=== PATIENT | female | born 1940 | race Two or more races ===

== ENCOUNTER 2016-09-14 08:12 | Outpatient (CLI) | payer MEDICARE, MEDICAID | END 2016-09-14 23:59 | disposition home or self-care (01) | LOC: WOU 08:12 | PROVIDERS: ATTEND Podiatrist Foot & Ankle Surgery | DX: E11.621 Type 2 diabetes mellitus with foot ulcer (principal); L97.521 Non-pressure chronic ulcer of other part of left foot limited to breakdown of skin; L97.519 Non-pressure chronic ulcer of other part of right foot with unspecified severity; E11.42 Type 2 diabetes mellitus with diabetic polyneuropathy; E11.69 Type 2 diabetes mellitus with other specified complication; M86.8X7 Other osteomyelitis, ankle and foot; L85.3 Xerosis cutis; R60.0 Localized edema; M20.42 Other hammer toe(s) (acquired), left foot; M20.41 Other hammer toe(s) (acquired), right foot; B35.1 Tinea unguium; L84 Corns and callosities; E11.51 Type 2 diabetes mellitus with diabetic peripheral angiopathy without gangrene | CPT/HCPCS: A6402; G0463 ==

== ENCOUNTER 2017-04-12 12:30 | Outpatient (CLI) | payer MEDICARE, MEDICAID | END 2017-04-12 23:59 | disposition home health service (06) | LOC: WOU 12:30 | PROVIDERS: ATTEND Podiatrist Foot & Ankle Surgery | DX: E11.621 Type 2 diabetes mellitus with foot ulcer (principal); L97.415 Non-pressure chronic ulcer of right heel and midfoot with muscle involvement without evidence of necrosis; L97.526 Non-pressure chronic ulcer of other part of left foot with bone involvement without evidence of necrosis; Z79.84 Long term (current) use of oral hypoglycemic drugs; Z79.899 Other long term (current) drug therapy; E11.52 Type 2 diabetes mellitus with diabetic peripheral angiopathy with gangrene; E11.69 Type 2 diabetes mellitus with other specified complication; M86.672 Other chronic osteomyelitis, left ankle and foot; L97.512 Non-pressure chronic ulcer of other part of right foot with fat layer exposed; E11.40 Type 2 diabetes mellitus with diabetic neuropathy, unspecified | CPT/HCPCS: 11042; 11043; 11044; A6402; J3490 ==

== ENCOUNTER → 2017-04-19 | Outpatient (CLI) | payer MEDICARE, MEDICAID | END | disposition home health service (06) | LOC: WOU 13:05 | PROVIDERS: ATTEND Podiatrist Foot & Ankle Surgery | DX: E11.621 Type 2 diabetes mellitus with foot ulcer (principal); L97.412 Non-pressure chronic ulcer of right heel and midfoot with fat layer exposed; L97.526 Non-pressure chronic ulcer of other part of left foot with bone involvement without evidence of necrosis; L97.512 Non-pressure chronic ulcer of other part of right foot with fat layer exposed; E11.69 Type 2 diabetes mellitus with other specified complication; M86.8X7 Other osteomyelitis, ankle and foot; E11.51 Type 2 diabetes mellitus with diabetic peripheral angiopathy without gangrene; E11.42 Type 2 diabetes mellitus with diabetic polyneuropathy | CPT/HCPCS: A6402; G0463 ==

== ENCOUNTER 2017-04-24 11:10 | Outpatient (CLI) | payer MEDICARE, MEDICAID | END 2017-04-24 23:59 | disposition home health service (06) | LOC: WOU 11:10 | PROVIDERS: ATTEND Specialist | DX: I96 Gangrene, not elsewhere classified (principal); E11.621 Type 2 diabetes mellitus with foot ulcer; L97.412 Non-pressure chronic ulcer of right heel and midfoot with fat layer exposed; L97.526 Non-pressure chronic ulcer of other part of left foot with bone involvement without evidence of necrosis; L97.512 Non-pressure chronic ulcer of other part of right foot with fat layer exposed; E11.52 Type 2 diabetes mellitus with diabetic peripheral angiopathy with gangrene; Z79.84 Long term (current) use of oral hypoglycemic drugs | CPT/HCPCS: A6209; A6402; G0463 ==

== ENCOUNTER 2017-04-30 10:50 | Outpatient (CLI) | payer MEDICARE, MEDICAID | END 2017-04-30 23:59 | disposition home health service (06) | LOC: WOU 10:50 | PROVIDERS: ATTEND Podiatrist Foot & Ankle Surgery | DX: E11.621 Type 2 diabetes mellitus with foot ulcer (principal); L97.412 Non-pressure chronic ulcer of right heel and midfoot with fat layer exposed; L97.526 Non-pressure chronic ulcer of other part of left foot with bone involvement without evidence of necrosis; L97.512 Non-pressure chronic ulcer of other part of right foot with fat layer exposed; I96 Gangrene, not elsewhere classified; E11.52 Type 2 diabetes mellitus with diabetic peripheral angiopathy with gangrene; M20.42 Other hammer toe(s) (acquired), left foot; M20.41 Other hammer toe(s) (acquired), right foot; Z79.84 Long term (current) use of oral hypoglycemic drugs; Z79.899 Other long term (current) drug therapy | CPT/HCPCS: 11042; A6209; A6402 ==

== ENCOUNTER 2017-05-07 11:04 | Outpatient (CLI) | payer MEDICARE, MEDICAID | END 2017-05-07 23:59 | disposition home health service (06) | LOC: WOU 11:04 | PROVIDERS: ATTEND Podiatrist Foot & Ankle Surgery | DX: E11.621 Type 2 diabetes mellitus with foot ulcer (principal); L97.412 Non-pressure chronic ulcer of right heel and midfoot with fat layer exposed; L97.524 Non-pressure chronic ulcer of other part of left foot with necrosis of bone; L97.512 Non-pressure chronic ulcer of other part of right foot with fat layer exposed; E11.69 Type 2 diabetes mellitus with other specified complication; M86.8X7 Other osteomyelitis, ankle and foot; E11.42 Type 2 diabetes mellitus with diabetic polyneuropathy; R42 Dizziness and giddiness; R10.9 Unspecified abdominal pain; Z79.84 Long term (current) use of oral hypoglycemic drugs; Z79.899 Other long term (current) drug therapy | CPT/HCPCS: 11042; 11044; 82962; A6209 ×2; A6402; G0463 ==

== ENCOUNTER 2017-05-07 12:11 | Outpatient (CLI) | payer MEDICARE, OTHER | END 2017-05-07 23:59 | disposition home or self-care (01) | LOC: RAD 12:11 | PROVIDERS: ATTEND Specialist | DX: J98.11 Atelectasis (principal); J98.6 Disorders of diaphragm; I70.0 Atherosclerosis of aorta; M47.894 Other spondylosis, thoracic region | CPT/HCPCS: 71046 ==

== ENCOUNTER 2017-05-31 08:30 | Outpatient (CLI) | payer MEDICARE, OTHER | END 2017-05-31 23:59 | disposition home health service (06) | LOC: WOU 08:30 | PROVIDERS: ATTEND Podiatrist Foot & Ankle Surgery | DX: E11.621 Type 2 diabetes mellitus with foot ulcer (principal); L97.412 Non-pressure chronic ulcer of right heel and midfoot with fat layer exposed; L97.524 Non-pressure chronic ulcer of other part of left foot with necrosis of bone; L97.512 Non-pressure chronic ulcer of other part of right foot with fat layer exposed; E11.69 Type 2 diabetes mellitus with other specified complication; M86.9 Osteomyelitis, unspecified; E11.52 Type 2 diabetes mellitus with diabetic peripheral angiopathy with gangrene; E11.65 Type 2 diabetes mellitus with hyperglycemia; Z79.84 Long term (current) use of oral hypoglycemic drugs | CPT/HCPCS: 11042; 11044; 82962; A6197; A6402 ×2 ==

== ENCOUNTER 2017-06-07 09:00 | Outpatient (CLI) | payer MEDICARE, OTHER | END 2017-06-07 23:59 | disposition home health service (06) | LOC: WOU 09:00 | PROVIDERS: ATTEND Podiatrist Foot & Ankle Surgery | DX: E11.621 Type 2 diabetes mellitus with foot ulcer (principal); L97.412 Non-pressure chronic ulcer of right heel and midfoot with fat layer exposed; L97.526 Non-pressure chronic ulcer of other part of left foot with bone involvement without evidence of necrosis; L97.512 Non-pressure chronic ulcer of other part of right foot with fat layer exposed; E11.69 Type 2 diabetes mellitus with other specified complication; M86.9 Osteomyelitis, unspecified; Z79.84 Long term (current) use of oral hypoglycemic drugs; E11.42 Type 2 diabetes mellitus with diabetic polyneuropathy; E11.52 Type 2 diabetes mellitus with diabetic peripheral angiopathy with gangrene; I96 Gangrene, not elsewhere classified | CPT/HCPCS: 11042; 11044; A6197; A6402 ==

== ENCOUNTER 2017-06-14 08:30 | Outpatient (CLI) | payer MEDICARE, OTHER | END 2017-06-14 23:59 | disposition home health service (06) | LOC: WOU 08:30 | PROVIDERS: ATTEND Podiatrist Foot & Ankle Surgery | DX: E11.621 Type 2 diabetes mellitus with foot ulcer (principal); L97.524 Non-pressure chronic ulcer of other part of left foot with necrosis of bone; L97.412 Non-pressure chronic ulcer of right heel and midfoot with fat layer exposed; L97.512 Non-pressure chronic ulcer of other part of right foot with fat layer exposed; M20.40 Other hammer toe(s) (acquired), unspecified foot; F41.9 Anxiety disorder, unspecified; E11.42 Type 2 diabetes mellitus with diabetic polyneuropathy; Z79.84 Long term (current) use of oral hypoglycemic drugs; Z79.899 Other long term (current) drug therapy | CPT/HCPCS: 11042; 11044; A6197; A6402 ==

== ENCOUNTER 2017-06-19 08:49 | Outpatient (CLI) | payer MEDICARE, OTHER ==
[2017-06-19] MEDS ORDERED: LORAZEPAM 0.5 MG TABLET PO ONE (09:30)
== END 2017-06-19 23:55 | disposition home or self-care (01) ==
LOC: WOU 08:49
PROVIDERS: ATTEND Specialist
DX: I96 Gangrene, not elsewhere classified (principal); E11.52 Type 2 diabetes mellitus with diabetic peripheral angiopathy with gangrene; E11.69 Type 2 diabetes mellitus with other specified complication; M86.69 Other chronic osteomyelitis, multiple sites; E11.621 Type 2 diabetes mellitus with foot ulcer; L97.529 Non-pressure chronic ulcer of other part of left foot with unspecified severity; S91.312A Laceration without foreign body, left foot, initial encounter; W25.XXXA Contact with sharp glass, initial encounter; Y92.89 Other specified places as the place of occurrence of the external cause; F40.240 Claustrophobia; H61.22 Impacted cerumen, left ear; G40.89 Other seizures
CPT/HCPCS: G0463

== ENCOUNTER 2017-06-21 10:29 | Outpatient (CLI) | payer MEDICARE, OTHER | END 2017-06-21 23:59 | disposition home health service (06) | LOC: WOU 10:29 | PROVIDERS: ATTEND Podiatrist Foot & Ankle Surgery | DX: E11.621 Type 2 diabetes mellitus with foot ulcer (principal); L97.412 Non-pressure chronic ulcer of right heel and midfoot with fat layer exposed; L97.524 Non-pressure chronic ulcer of other part of left foot with necrosis of bone; L97.512 Non-pressure chronic ulcer of other part of right foot with fat layer exposed; E11.65 Type 2 diabetes mellitus with hyperglycemia; E11.69 Type 2 diabetes mellitus with other specified complication; M86.8X7 Other osteomyelitis, ankle and foot; Z79.84 Long term (current) use of oral hypoglycemic drugs | CPT/HCPCS: 11042; 11044; A6197; A6402 ==

== ENCOUNTER 2017-06-28 09:50 | Outpatient (CLI) | payer MEDICARE, OTHER ==
[2017-08-14] MEDS ORDERED: RXVAN XX (13:57)
== END 2017-06-28 23:59 | disposition home health service (06) ==
LOC: WOU 09:50
PROVIDERS: ATTEND Podiatrist Foot & Ankle Surgery
DX: E11.621 Type 2 diabetes mellitus with foot ulcer (principal); L97.526 Non-pressure chronic ulcer of other part of left foot with bone involvement without evidence of necrosis; L97.516 Non-pressure chronic ulcer of other part of right foot with bone involvement without evidence of necrosis; L97.512 Non-pressure chronic ulcer of other part of right foot with fat layer exposed; E11.65 Type 2 diabetes mellitus with hyperglycemia; E11.69 Type 2 diabetes mellitus with other specified complication; M86.9 Osteomyelitis, unspecified; Z79.84 Long term (current) use of oral hypoglycemic drugs
CPT/HCPCS: 11042; 11044; 87070-TC; 87075-TC; 87186-TC; A6197; A6402

== ENCOUNTER 2017-07-05 08:47 | Outpatient (CLI) | payer MEDICARE, OTHER ==
[2017-08-14] MEDS ORDERED: RXVAN XX (13:57)
== END 2017-07-05 23:59 | disposition home health service (06) ==
LOC: WOU 08:47
PROVIDERS: ATTEND Podiatrist Foot & Ankle Surgery
DX: E11.621 Type 2 diabetes mellitus with foot ulcer (principal); L97.512 Non-pressure chronic ulcer of other part of right foot with fat layer exposed; L97.524 Non-pressure chronic ulcer of other part of left foot with necrosis of bone; E11.65 Type 2 diabetes mellitus with hyperglycemia; E11.69 Type 2 diabetes mellitus with other specified complication; M86.69 Other chronic osteomyelitis, multiple sites; Z79.84 Long term (current) use of oral hypoglycemic drugs; G40.89 Other seizures
CPT/HCPCS: 11042; 11044; A6197; A6402

== ENCOUNTER 2017-07-12 12:15 | Outpatient (CLI) | payer MEDICARE, OTHER ==
[2017-08-14] MEDS ORDERED: RXVAN XX (13:57)
== END 2017-07-12 23:59 | disposition home health service (06) ==
LOC: WOU 12:15
PROVIDERS: ATTEND Podiatrist Foot & Ankle Surgery
DX: E11.621 Type 2 diabetes mellitus with foot ulcer (principal); L97.524 Non-pressure chronic ulcer of other part of left foot with necrosis of bone; L97.512 Non-pressure chronic ulcer of other part of right foot with fat layer exposed; E11.52 Type 2 diabetes mellitus with diabetic peripheral angiopathy with gangrene; I96 Gangrene, not elsewhere classified; Z79.4 Long term (current) use of insulin; E11.69 Type 2 diabetes mellitus with other specified complication; M86.69 Other chronic osteomyelitis, multiple sites; G40.89 Other seizures
CPT/HCPCS: 11042; 11044; A6402

== ENCOUNTER 2017-07-19 10:00 | Outpatient (CLI) | payer MEDICARE, OTHER ==
[2017-08-14] MEDS ORDERED: RXVAN XX (13:57)
== END 2017-07-19 23:59 | disposition home health service (06) ==
LOC: WOU 10:00
PROVIDERS: ATTEND Podiatrist Foot & Ankle Surgery
DX: E11.621 Type 2 diabetes mellitus with foot ulcer (principal); L97.524 Non-pressure chronic ulcer of other part of left foot with necrosis of bone; L97.512 Non-pressure chronic ulcer of other part of right foot with fat layer exposed; E11.69 Type 2 diabetes mellitus with other specified complication; M86.672 Other chronic osteomyelitis, left ankle and foot; E11.42 Type 2 diabetes mellitus with diabetic polyneuropathy; Z79.84 Long term (current) use of oral hypoglycemic drugs
CPT/HCPCS: 11042; 11044; 82962; A6402

== ENCOUNTER 2017-08-02 09:40 | Outpatient (CLI) | payer MEDICARE, OTHER ==
[2017-08-14] MEDS ORDERED: RXVAN XX (13:57)
== END 2017-08-02 23:59 | disposition home health service (06) ==
LOC: WOU 09:40
PROVIDERS: ATTEND Podiatrist Foot & Ankle Surgery
DX: E11.621 Type 2 diabetes mellitus with foot ulcer (principal); L97.524 Non-pressure chronic ulcer of other part of left foot with necrosis of bone; L97.512 Non-pressure chronic ulcer of other part of right foot with fat layer exposed; Z79.84 Long term (current) use of oral hypoglycemic drugs; Z79.899 Other long term (current) drug therapy; E11.65 Type 2 diabetes mellitus with hyperglycemia; E11.69 Type 2 diabetes mellitus with other specified complication; M86.672 Other chronic osteomyelitis, left ankle and foot; E11.42 Type 2 diabetes mellitus with diabetic polyneuropathy
CPT/HCPCS: 11042; 11044; A6402

== ENCOUNTER → 2017-08-07 | Outpatient (CLI) | payer MEDICARE, OTHER ==
[~2017-08-07] MED LIST: ATOR40TA PO; BENA20TA9 PO; CLOP75TA15 PO; GLIP10TA11 PO; INSU100I4 SQ; INSU100V7 SQ; MEMA10TA PO; METF-442 PO; PANT40TA2 PO; RXVAN XX
== END | disposition home health service (06) ==
LOC: WOU 09:16
PROVIDERS: ATTEND Podiatrist Foot & Ankle Surgery
DX: E11.621 Type 2 diabetes mellitus with foot ulcer (principal); L97.524 Non-pressure chronic ulcer of other part of left foot with necrosis of bone; L97.512 Non-pressure chronic ulcer of other part of right foot with fat layer exposed; M86.672 Other chronic osteomyelitis, left ankle and foot; E11.65 Type 2 diabetes mellitus with hyperglycemia; E11.42 Type 2 diabetes mellitus with diabetic polyneuropathy; Z79.84 Long term (current) use of oral hypoglycemic drugs
CPT/HCPCS: 11042; 11044; A6402

== ENCOUNTER 2017-08-09 08:23 | Outpatient (CLI) | payer MEDICARE, OTHER ==
[2017-08-09] MEDS ORDERED: GLIP10TA11 PO (11:49)
[2017-08-09] MEDS ORDERED: METF-442 PO (11:49)
[2017-08-09] MEDS ORDERED: PANT40TA2 PO (11:58)
[2017-08-09] MEDS ORDERED: MEMA10TA PO (11:58)
[2017-08-09] MEDS ORDERED: CLOP75TA15 PO (11:58)
[2017-08-09] MEDS ORDERED: BENA20TA9 PO (11:58)
[2017-08-09] MEDS ORDERED: INSU100I4 SQ (11:58)
[2017-08-09] MEDS ORDERED: ATOR40TA PO (11:58)
[2017-08-09] MEDS ORDERED: INSU100V7 SQ ×2 (11:58)
[2017-08-14] MEDS ORDERED: RXVAN XX (13:57)
== END 2017-08-09 23:59 | disposition other institution (70) ==
LOC: WOU 08:23
PROVIDERS: ATTEND Podiatrist Foot & Ankle Surgery
DX: E11.621 Type 2 diabetes mellitus with foot ulcer (principal); L97.524 Non-pressure chronic ulcer of other part of left foot with necrosis of bone; L97.512 Non-pressure chronic ulcer of other part of right foot with fat layer exposed; E11.69 Type 2 diabetes mellitus with other specified complication; M86.672 Other chronic osteomyelitis, left ankle and foot; E11.65 Type 2 diabetes mellitus with hyperglycemia; Z79.84 Long term (current) use of oral hypoglycemic drugs
CPT/HCPCS: 11042; 11044; A6402

== ENCOUNTER 2017-08-09 10:04 | Inpatient (IN) | payer MEDICARE, OTHER ==
[~2017-08-09] VITALS: Ht 167.6 cm; Wt 79.8 kg
[2017-08-09 10:25] VITALS: BP 148/82
[2017-08-09] MEDS ORDERED: VANCOMYCIN 1 GM in IV NS 0.9% 250 ML IV SCH (11:00)
--- NOTE | 2017-08-09 11:10 | NUR ---
MS RN ADMITTING NOTES PATIENT ADMITTED DIRECTLY FROM [facility] TO UNIT VIA WHEELCHAIR @1030 ACCOMPANIED BY LEONEL BEAUCHAMP AND PT'S DAUGHTER. A/O X 4. [place]GI[place] SPEAKING. PT ORIENTED TO UNIT AND HER ROOM. 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 PT FOR B/L FOOT DEBRIDEMENT AND WOUND CLOSURE ON SATURDAY (08/12/2017), CONSENT WILL BE OBTAIN FROM PT. V/S TAKEN AND RECORDED. PHOTO OF FOOT ULCERS TAKEN AND FILED ON CHART. BELONGINGS COUNTED AND SIGNED FORM. PT BROUGHT SOME HOME MEDS AND SENT TO PHARMACY FOR SAFEKEEPING. ASSESSMENT DONE AND NOTED WITH FOOT ULCERS ON BOTH TOES., PHOTOS TAKEN AND FILED ON CHART. PT IS UNDER BENNY CARTY AND ALL HIS ORDERS CARRIED OUT. LEONEL MARS INSERTED IV LINE ON PT'S RIGHT HAND G#20 AND SECURED WITH TAPE. SAFETY MEASURES INITIATED. BED PLACED IN LOW/LOCKED POSITION WITH SIDE-RAILS UP X2. BED ALARM ON. CALL LIGHT WITHIN REACH OF PT. ENCOURAGED PT TO CALL FOR STAFF IF SHE NEEDS ASSISTANCE. WILL CONTINUE TO MONITOR PT ACCORDINGLY.
[2017-08-09] MEDS ORDERED: METF-442 PO (11:49)
[2017-08-09] MEDS ORDERED: GLIP10TA11 PO (11:49)
[2017-08-09] MEDS ORDERED: ATOR40TA PO (11:58)
[2017-08-09] MEDS ORDERED: MEMA10TA PO (11:58)
[2017-08-09] MEDS ORDERED: PANT40TA2 PO (11:58)
[2017-08-09] MEDS ORDERED: CLOP75TA15 PO (11:58)
[2017-08-09] MEDS ORDERED: BENA20TA9 PO (11:58)
[2017-08-09] MEDS ORDERED: INSU100I4 SQ (11:58)
[2017-08-09] MEDS ORDERED: INSU100V7 SQ ×2 (11:58)
[2017-08-09 12:46] LABS: BASOPHILS % (AUTO) 0.2 % (0.0-2.0); EOSINOPHILS % (AUTO) 1.2 % (0.0-6.0); HEMATOCRIT 32 % (33-45); HEMOGLOBIN 11.1 g/dL (11.5-14.8); LYMPHOCYTES # (AUTO) 1.1 /CMM (0.8-4.8); LYMPHOCYTES % (AUTO) 31.5 % (20.0-44.0); MEAN CORPUSCULAR HGB CONC 35 g/dl (31.0-36.0); MEAN CORPUSCULAR VOLUME 87 fL (82-100); MONOCYTES # (AUTO) 0.2 /CMM (0.1-1.30); MONOCYTES % (AUTO) 6.4 % (2.0-12.0); NEUTROPHILS # (AUTO) 2.2 /CMM (1.8-8.9); NEUTROPHILS % (AUTO) 60.7 % (43.0-81.0); PLATELET COUNT (AUTO) 215 /CMM (150-450); RDW COEFFICIENT OF VARIATION 12.7 (11.5-15.0); RED BLOOD CELL COUNT(AUTO) 3.69 MIL/uL (4.0-5.2); WHITE BLOOD COUNT (AUTO) 3.6 K/uL (4.3-11.0)
[2017-08-09] MEDS ORDERED: DEXTROSE 50%-WATER 50 ML DISP.SYRIN IV PRN (13:00)
[2017-08-09] MEDS ORDERED: *INSULIN REGULAR(HUMULIN R)HUM 100 UNIT/ML VIAL SQ PRN (13:00)
[2017-08-09] MEDS ORDERED: INSULIN REGULAR, HUMAN 100 UNIT/ML 3 ML VIAL SQ PRN (13:00)
[2017-08-09 13:03] LABS: ALANINE AMINOTRANSFERASE 20 U/L (12-78); ALBUMIN 3.8 g/dL (3.4-5.0); ALKALINE PHOSPHATASE 113 U/L (46-116); ASPARTATE AMINOTRANSFERASE 16 U/L (15-37); BILIRUBIN,TOTAL 0.4 mg/dL (0.2-1.0); CALCIUM, SERUM 9.2 mg/dL (8.5-10.1); CARBON DIOXIDE 26 mmol/L (21-32); CHLORIDE 102 mmol/L (98-107); GLUCOSE 242 mg/dL (74-106); POTASSIUM 4.3 mmol/L (3.5-5.1); SODIUM SERUM 137 mmol/L (136-145); TOTAL PROTEIN, SERUM 8.5 g/dL (6.4-8.2); UREA NITROGEN, BLOOD 12 mg/dL (7-18)
[2017-08-09] MEDS ORDERED: FEE PK DOSING 1 MIN EA MC ONE (14:31)
[2017-08-09] MEDS: VANCOMYCIN 0.75 GM in IV NS 0.9% 250 ML IV SCH (14:46)
[2017-08-09 16:00] VITALS: BP 138/79
--- NOTE | 2017-08-09 16:33 | NUR ---
RN NOTES PT'S RIGHT NARE SWABBED FOR MRSA TEST THEN CALLED LAB TO PICK SPECIMEN.
[2017-08-09] MEDS: MEMANTINE HCL 5 MG TABLET PO SCH (17:10)
[2017-08-09] MEDS: METFORMIN 500 MG TABLET PO SCH (17:11)
[2017-08-09] MEDS: PIPERACILLIN /TAZOBACTAM 3.375 G in IV D5W 50 ML IV SCH (17:14)
[2017-08-09] MEDS: BLOOD SUGAR DIAGNOSTIC 1 EACH STRIP VI SCH ×2 (17:38→21:44)
[2017-08-09] MEDS: INSULIN LISPRO/ASPART 100 UNIT/ML CARTRIDGE SQ SCH (17:38)
[2017-08-09] MEDS: ATORVASTATIN 40 MG TABLET PO SCH (17:39)
--- NOTE | 2017-08-09 18:30 | NUR ---
MS RN CLOSING NOTES PATIENT IN BED AWAKE AND RESTING AT MODERATE HIGH BACKREST POSITION. A/O 4, SAME VERBALLY RESPONSIVE IN [place]. PT TOLERATING ROOM AIR, BREATHING EVEN WITH NO SOB NOTED. IV ACCESS ON RIGHT HAND G#20 INTACT AND PATENT. HOB KEPT ELEVATED. BED IN LOW/LOCKED POSITION WITH SIDE-RAILS UP X2. BED ALARM ON AND CALL LIGHT WITHIN REACH. ALL NEEDS AND CARE ATTENDED WELL. WILL ENDORSED TO SEO EXECUTIVE NURSE FOR EASTON.
--- NOTE | 2017-08-09 19:15 | NUR ---
MS RN NOTES RECEIVED PATIENT IN BED, AWAKE AND WATCHING TV AT THIS TIME. A/O 4, VERBALLY RESPONSIVE, GREENLANDIC SPEAKING. TOLERATING ROOM AIR, BREATHING EVEN WITH NO SOB NOTED. IV ACCESS ON RIGHT HAND G#20 INTACT AND PATENT. FLUSHED WITH NS. BED IN LOW/LOCKED POSITION WITH SIDE-RAILS UP X2. BED ALARM ON AND CALL LIGHT WITHIN REACH. ALL NEEDS ATTENDED AND MET. SAFETY PRECAUTIONS OBSERVED. WILL CONTINUE TO MONITOR.
[2017-08-09 20:00] VITALS: BP 134/69
[2017-08-09] MEDS: INSULIN GLARGINE, 100 UNIT/ML CARTRIDGE SQ SCH (21:51)
[2017-08-10] MEDS: PIPERACILLIN /TAZOBACTAM 3.375 G in IV D5W 50 ML IV SCH ×5 (00:44→23:52)
[2017-08-10] MEDS: VANCOMYCIN 0.75 GM in IV NS 0.9% 250 ML IV SCH ×2 (03:04→14:15)
[2017-08-10] MEDS: INSULIN LISPRO/ASPART 100 UNIT/ML CARTRIDGE SQ SCH ×3 (06:40→17:56)
[2017-08-10 06:42] LABS: BASOPHILS % (AUTO) 0.3 % (0.0-2.0); EOSINOPHILS % (AUTO) 1.2 % (0.0-6.0); HEMATOCRIT 28 % (33-45); HEMOGLOBIN 9.9 g/dL (11.5-14.8); LYMPHOCYTES # (AUTO) 0.9 /CMM (0.8-4.8); LYMPHOCYTES % (AUTO) 20.7 % (20.0-44.0); MEAN CORPUSCULAR HGB CONC 35 g/dl (31.0-36.0); MEAN CORPUSCULAR VOLUME 86 fL (82-100); MONOCYTES # (AUTO) 0.3 /CMM (0.1-1.30); NEUTROPHILS # (AUTO) 3.1 /CMM (1.8-8.9); NEUTROPHILS % (AUTO) 70.8 % (43.0-81.0); PLATELET COUNT (AUTO) 204 /CMM (150-450); RDW COEFFICIENT OF VARIATION 12.6 (11.5-15.0); RED BLOOD CELL COUNT(AUTO) 3.25 MIL/uL (4.0-5.2); WHITE BLOOD COUNT (AUTO) 4.4 K/uL (4.3-11.0)
[2017-08-10] MEDS: BLOOD SUGAR DIAGNOSTIC 1 EACH STRIP VI SCH ×4 (06:45→21:31)
--- NOTE | 2017-08-10 06:50 | NUR ---
MS RN NOTES PATIENT IN BED, AWAKE, A/O 4, VERBALLY RESPONSIVE, SINGAPOREAN SPEAKING. ON ROOM AIR, SATING 98 % . BREATHING EVEN AND UNLABORED WITH NO SOB NOTED. IV SITE ON RIGHT HAND G#20 INTACT AND PATENT. FLUSHED WITH NS. BED IN LOW/LOCKED POSITION WITH SIDE-RAILS UP X2. BED ALARM ON AND CALL LIGHT WITHIN REACH. NO S/S OF HYPO/ HYPERGLYCEMIA NOTED. ALL NEEDS ATTENDED AND MET. ALL DUE MEDS GIVEN. SAFETY PRECAUTIONS OBSERVED. WILL ENDORSE TO NEXT SHIFT FOR EASTON.
[2017-08-10 07:28] LABS: CALCIUM, SERUM 8.6 mg/dL (8.5-10.1); CARBON DIOXIDE 25 mmol/L (21-32); CHLORIDE 100 mmol/L (98-107); CREATININE 1.1 mg/dL (0.6-1.3); GLUCOSE 288 mg/dL (74-106); POTASSIUM 4.1 mmol/L (3.5-5.1); SODIUM SERUM 136 mmol/L (136-145); UREA NITROGEN, BLOOD 13 mg/dL (7-18)
--- NOTE | 2017-08-10 07:30 | NUR ---
AM RN NOTE Received patient awake, A/O X3 verbally responsive able to make needs known. No SOB noted resp even and non-labored. IV site intact and patent. Bed in low locked position. Will continue to monitor. Call light with in reach.
[2017-08-10 08:00] VITALS: BP 116/69
[2017-08-10] MEDS: PANTOPRAZOLE 40 MG TABLET.DR PO SCH (08:23)
[2017-08-10] MEDS: METFORMIN 500 MG TABLET PO SCH ×2 (08:23→17:43)
[2017-08-10] MEDS: CLOPIDOGREL BISULFATE 75 MG TABLET PO SCH (08:23)
[2017-08-10] MEDS: glipiZIDE 10 MG TABLET PO SCH (08:23)
[2017-08-10] MEDS: BENAZEPRIL HCL 20 MG TABLET PO SCH (08:23)
[2017-08-10] MEDS: MEMANTINE HCL 5 MG TABLET PO SCH ×2 (08:23→17:43)
[2017-08-10] MEDS: CADEXOMER IODINE 40 GM TUBE TP SCH (08:24)
[2017-08-10] MEDS: DAKINS QUARTER STRENGTH (0.125%) 480 ML BOTTLE TOP SCH (08:24)
[2017-08-10] MEDS: ZINC SULFATE 220 MG CAPSULE PO SCH (12:00)
[2017-08-10] MEDS: ASCORBIC ACID 500 MG TABLET PO SCH (12:00)
[2017-08-10] MEDS: ATORVASTATIN 40 MG TABLET PO SCH (17:43)
--- NOTE | 2017-08-10 18:33 | NUR ---
AM RN NOTE Pt resting in her bed, no acute distress noted. Family did not visit today, called daughter (Jeanette) to obtain consent but number listed on the file is not a working number. Will endorse to next shift to F/U. Will continue to monitor pt and endorse care to next shift.
[2017-08-10 20:00] VITALS: BP 113/64
[2017-08-10] MEDS: INSULIN GLARGINE, 100 UNIT/ML CARTRIDGE SQ SCH (21:31)
[2017-08-11] MEDS: VANCOMYCIN 0.75 GM in IV NS 0.9% 250 ML IV SCH (02:02)
[2017-08-11] MEDS: PIPERACILLIN /TAZOBACTAM 3.375 G in IV D5W 50 ML IV SCH ×3 (06:06→17:01)
[2017-08-11] MEDS: INSULIN LISPRO/ASPART 100 UNIT/ML CARTRIDGE SQ SCH ×3 (06:23→17:17)
[2017-08-11] MEDS: BLOOD SUGAR DIAGNOSTIC 1 EACH STRIP VI SCH ×3 (06:24→17:01)
--- NOTE | 2017-08-11 06:49 | NUR ---
MS RN NOTES AWAKE & RESPONSIVE. NOT IN ANY DISTRESS. NO SOB NOTED. DENIES ANY PAIN OR DISCOMFORT AT THIS TIME. WITH IV-HL PATENT & INTACT. MONITORED ACCORDINGLY. CALL LIGHT WITHIN REACH. BED IN LOWEST POSITION. SR UP X 2 FOR SAFETY. WILL ENDORSE TO NEXT SHIFT.
[2017-08-11 07:25] LABS: CALCIUM, SERUM 8.7 mg/dL (8.5-10.1); CARBON DIOXIDE 26 mmol/L (21-32); CHLORIDE 103 mmol/L (98-107); CREATININE 1.1 mg/dL (0.6-1.3); GLUCOSE 181 mg/dL (74-106); POTASSIUM 3.6 mmol/L (3.5-5.1); SODIUM SERUM 139 mmol/L (136-145); UREA NITROGEN, BLOOD 10 mg/dL (7-18)
--- NOTE | 2017-08-11 07:45 | NUR ---
MS RN OPENING NOTE PATIENT IS ALERT AND ORIENTED x4. NO PAIN AT THIS TIME. NO SOB OR DISTRESS NOTED. ABLE TO COMMUNICATE NEEDS. CALL LIGHT WITHIN REACH. SAFETY MEASURES IMPLEMENTED. IV INTACT AND PATENT NO REDNESS OR SWELLING NOTED. WOUND TREATMENT TO BE DONE AND BLOOD SUGAR TO BE CHECKED. STILL AWAITING FOR CONSENT FOR WOUND DEBRIDEMENT. WILL CONTINUE TO MONITOR THROUGHOUT SHIFT
[2017-08-11 08:00] VITALS: BP 109/61
[2017-08-11] MEDS: BENAZEPRIL HCL 20 MG TABLET PO SCH (08:13)
[2017-08-11] MEDS: ZINC SULFATE 220 MG CAPSULE PO SCH (08:15)
[2017-08-11] MEDS: CLOPIDOGREL BISULFATE 75 MG TABLET PO SCH (08:15)
[2017-08-11] MEDS: METFORMIN 500 MG TABLET PO SCH ×2 (08:15→17:01)
[2017-08-11] MEDS: ASCORBIC ACID 500 MG TABLET PO SCH (08:15)
[2017-08-11] MEDS: MEMANTINE HCL 5 MG TABLET PO SCH ×2 (08:15→17:01)
[2017-08-11] MEDS: PANTOPRAZOLE 40 MG TABLET.DR PO SCH (08:15)
[2017-08-11] MEDS: CADEXOMER IODINE 40 GM TUBE TP SCH (08:15)
[2017-08-11] MEDS: glipiZIDE 10 MG TABLET PO SCH (08:15)
[2017-08-11] MEDS: DAKINS QUARTER STRENGTH (0.125%) 480 ML BOTTLE TOP SCH (08:16)
--- NOTE | 2017-08-11 11:00 | NUR ---
MS RN NOTE WOUND DRESSING CHANGED, KEPT CLEAN DRY AND INTACT. WILL CHANGE NEEDED IF SOILED.
--- NOTE | 2017-08-11 12:00 | NUR ---
MS RN NOTE BLOOD SUGAR-160 SCHEDULED INSULIN TO BE GIVEN ONCE FOOD ARRIVES AT BEDSIDE.
[2017-08-11] MEDS: VANCOMYCIN 1 GM in IV D5W 250 ML IV SCH (13:30)
[2017-08-11 16:00] VITALS: BP 114/59
[2017-08-11] MEDS: ATORVASTATIN 40 MG TABLET PO SCH (17:01)
[2017-08-11] MEDS: LACTOBACILLUS RHAMNOSUS GG 1 EACH CAP.SPRINK PO SCH (17:11)
--- NOTE | 2017-08-11 19:20 | NUR ---
MS RN CLOSING NOTES PATIENT IN STABLE CONDITION. IN NO APPARENT DISTRESS. BEDSIDE RAILS ARE UPX2. BED IS LOCKED AND LOWERED. CALL LIGHT IS WITHIN REACH. IV LINE IS INTACT AND PATENT. WILL ENDORSE CARE TO FIRE MANAGEMENT SPECIALIST NURSE FOR EASTON.
--- NOTE | 2017-08-11 19:35 | NUR ---
RN OPENING NOTES RECEIVED REPORT FROM ANAHIWILLAM RN MACARIO. FOUND Pt AWAKE, RESTING IN BED. NO S/S OF ACUTE DISTRESS OR SOB NOTED. Pt IS A/OX4, MALDIVIAN SPEAKING ONLY. NO C/O PAIN AT THIS TIME. IV ACCESS ON RHAND #20G, SL. CONSENT SIGNED FOR CATHY FOOT DEBRIDEMENT AND WOUND CLOSER. SAFETY MEASURES IN PLACE. BED LOW, LOCKED, HOB ELEVATED, SIDE RAILS UP, CALL LIGHT AND BEDSIDE TABLE WITHIN REACH. WILL CONTINUE TO MONITOR Pt THROUGHOUT THE NIGHT FOR SAFETY.
[2017-08-11 20:00] VITALS: BP 113/65
[2017-08-11] MEDS: INSULIN GLARGINE, 100 UNIT/ML CARTRIDGE SQ SCH (22:00)
--- NOTE | 2017-08-11 23:00 | NUR ---
RN NOTES HS ACCUCHECK BG 126. DID NOT ADMINISTER THE SCHEDULED 15UN OF LANTUS. Pt WILL BE NPO STARTING MN DUE TO SCHEDULED PROCEDURE TOMORROW.
[2017-08-12] MEDS: BLOOD SUGAR DIAGNOSTIC 1 EACH STRIP VI SCH ×5 (00:13→22:38)
[2017-08-12] MEDS: PIPERACILLIN /TAZOBACTAM 3.375 G in IV D5W 50 ML IV SCH ×4 (00:13→17:16)
[2017-08-12] MEDS: VANCOMYCIN 1 GM in IV D5W 250 ML IV SCH ×2 (02:51→14:21)
[2017-08-12] MEDS ORDERED: ANESTHESIA TRAY IN PYXIS 1 EA TRAY MC ONE (06:28)
--- NOTE | 2017-08-12 06:30 | NUR ---
RN NOTES BG 175. NO INSULIN COVERAGE GIVEN AT THIS TIME DUE TO NPO STATUS FOR SURGERY TODAY. OR PROCEDURE SCHEDULED AT 0700.
[2017-08-12] MEDS: INSULIN LISPRO/ASPART 100 UNIT/ML CARTRIDGE SQ SCH ×3 (06:31→16:48)
--- NOTE | 2017-08-12 06:35 | NUR ---
RN CLOSING NOTES NO SIGNIFICANT CHANGES IN Pt's CONDITION. Pt REMAINS STABLE AT THIS TIME. NO S/S OF ACUTE DISTRESS OR SOB NOTED DURING THE NIGHT. ALL NEEDS MET AND ATTENDED TO. SAFETY MEASURES IN PLACE. WILL ENDORSE TO DAYSHIFT RN FOR Pt's EASTON.
--- NOTE | 2017-08-12 06:55 | NUR ---
PATIENT TAKEN BY OR TEAM FOR PROCEDURE TODAY.
[2017-08-12 07:29] LABS: CALCIUM, SERUM 8.4 mg/dL (8.5-10.1); CARBON DIOXIDE 25 mmol/L (21-32); CHLORIDE 101 mmol/L (98-107); CREATININE 1.2 mg/dL (0.6-1.3); GLUCOSE 165 mg/dL (74-106); POTASSIUM 3.7 mmol/L (3.5-5.1); SODIUM SERUM 137 mmol/L (136-145); UREA NITROGEN, BLOOD 13 mg/dL (7-18)
--- NOTE | 2017-08-12 07:32 | NUR ---
MS RN OPENING NOTES PATIENT IS IN OPERATION ROOM. PATIENT LEFT AT 0655. WILL MONITOR WHEN PATIENT RETURNS BACK TO THE UNIT.
[2017-08-12] MEDS: CADEXOMER IODINE 40 GM TUBE TP SCH (09:00)
[2017-08-12] MEDS: DAKINS QUARTER STRENGTH (0.125%) 480 ML BOTTLE TOP SCH (09:00)
--- NOTE | 2017-08-12 09:10 | NUR ---
PATIENT CAME BACK FROM OPERATION ROOM. IN STABLE CONDITION. VITAL SIGNS WITHIN NORMAL LIMITS. WILL CONTINUE TO MONITOR. IV LINE IS INTACT AND PATENT. IN NO APPARENT DISTRESS. BEDSIDE RAILS ARE UPX2. BED IS LOCKED AND LOWERED. CALL LIGHT IS WITHIN REACH.
--- NOTE | 2017-08-12 09:20 | NUR ---
IODOSORB AND DAKINS NON ADMINISTERED DUE TO PATIENT JUST ARRIVED FROM OPERATION ROOM AFTER DEBRIDEMENT OF BILATERAL FEET. ORDERS ARE TO REINFORCE DRESSING FOR STRIKE THROUGH BLEEDING.
[2017-08-12] MEDS: LACTOBACILLUS RHAMNOSUS GG 1 EACH CAP.SPRINK PO SCH ×2 (09:39→16:42)
[2017-08-12] MEDS: CLOPIDOGREL BISULFATE 75 MG TABLET PO SCH (09:39)
[2017-08-12] MEDS: PANTOPRAZOLE 40 MG TABLET.DR PO SCH (09:39)
[2017-08-12] MEDS: ZINC SULFATE 220 MG CAPSULE PO SCH (09:39)
[2017-08-12] MEDS: METFORMIN 500 MG TABLET PO SCH ×2 (09:39→16:42)
[2017-08-12] MEDS: ASCORBIC ACID 500 MG TABLET PO SCH (09:39)
[2017-08-12] MEDS: MEMANTINE HCL 5 MG TABLET PO SCH ×2 (09:39→16:42)
[2017-08-12] MEDS: glipiZIDE 10 MG TABLET PO SCH (09:39)
[2017-08-12] MEDS: BENAZEPRIL HCL 20 MG TABLET PO SCH (09:39)
[2017-08-12] MEDS: ATORVASTATIN 40 MG TABLET PO SCH (17:16)
[2017-08-12] MEDS ORDERED: HYDROCODONE/APAP 5/325MG 1 EACH TABLET PO PRN (18:00)
--- NOTE | 2017-08-12 19:00 | NUR ---
MS RN CLOSING NOTES PATIENT IN STABLE CONDITION. IN NO APPARENT DISTRESS. BEDSIDE RAILS ARE UPX2. BED IS LOCKED AND LOWERED. CALL LIGHT IS WITHIN REACH. ALL NEEDS WERE MET. IV LINE IS INTACT AND PATENT. WILL ENDORSE CARE TO ARTILLERY METEOROLOGICAL MAN NURSE FOR EASTON.
--- NOTE | 2017-08-12 19:30 | NUR ---
RN OPENING NOTES RECEIVED REPORT FROM FIDEL RN MACARIO. FOUND Pt AWAKE, RESTING IN BED. NO S/S OF ACUTE DISTRESS OR SOB NOTED. Pt IS A/OX4, INDONESIAN SPEAKING ONLY. S/P B FOOT DEBRIDEMENT AND WOUND CLOSURE TODAY. C/O PAIN ON CATHY FEET, WILL ADMINISTER PAIN MED WHEN DUE. IV ACCESS ON RFA #24G, TKO. SAFETY MEASURES IN PLACE. BED LOW, LOCKED, HOB ELEVATED, SIDE RAILS UP, CALL LIGHT AND BEDSIDE TABLE WITHIN REACH. WILL CONTINUE TO MONITOR Pt THROUGHOUT THE NIGHT FOR SAFETY.
[2017-08-12 20:00] VITALS: BP 127/50
[2017-08-12 20:10] VITALS: BP 127/50
[2017-08-12] MEDS: HYDROCODONE/APAP 10/325MG 1 EA TABLET PO PRN (21:39)
[2017-08-12] MEDS: INSULIN GLARGINE, 100 UNIT/ML CARTRIDGE SQ SCH (22:46)
[2017-08-13] MEDS: PIPERACILLIN /TAZOBACTAM 3.375 G in IV D5W 50 ML IV SCH ×2 (01:18→05:58)
[2017-08-13] MEDS: VANCOMYCIN 1 GM in IV D5W 250 ML IV SCH (02:55)
[2017-08-13] MEDS: HYDROCODONE/APAP 10/325MG 1 EA TABLET PO PRN ×2 (05:58→12:06)
[2017-08-13] MEDS: BLOOD SUGAR DIAGNOSTIC 1 EACH STRIP VI SCH ×4 (06:32→21:56)
--- NOTE | 2017-08-13 07:05 | NUR ---
RN NOTES PT IS SITTING UP IN BED, AWAKE AND ALERT. IV ON RFA INTACT. PT ON RA, RESPIRATIONS ARE EVEN AND UNLABORED. SAFETY MEASURES ARE IN PLACE, CALL LIGHT IS IN REACH. WILL CONTINUE TO MONITOR.
[2017-08-13 07:15] LABS: BASOPHILS % (AUTO) 0.2 % (0.0-2.0); EOSINOPHILS % (AUTO) 0.4 % (0.0-6.0); HEMATOCRIT 29 % (33-45); LYMPHOCYTES # (AUTO) 1.2 /CMM (0.8-4.8); LYMPHOCYTES % (AUTO) 21.2 % (20.0-44.0); MEAN CORPUSCULAR HGB CONC 35 g/dl (31.0-36.0); MEAN CORPUSCULAR VOLUME 86 fL (82-100); MONOCYTES # (AUTO) 0.5 /CMM (0.1-1.30); MONOCYTES % (AUTO) 8.9 % (2.0-12.0); NEUTROPHILS # (AUTO) 3.8 /CMM (1.8-8.9); NEUTROPHILS % (AUTO) 69.3 % (43.0-81.0); PLATELET COUNT (AUTO) 183 /CMM (150-450); RDW COEFFICIENT OF VARIATION 13.2 (11.5-15.0); WHITE BLOOD COUNT (AUTO) 5.5 K/uL (4.3-11.0)
[2017-08-13] MEDS: INSULIN LISPRO/ASPART 100 UNIT/ML CARTRIDGE SQ SCH ×3 (07:30→17:30)
[2017-08-13 07:31] LABS: CARBON DIOXIDE 24 mmol/L (21-32); CHLORIDE 102 mmol/L (98-107); CREATININE 1.3 mg/dL (0.6-1.3); GLUCOSE 123 mg/dL (74-106); MAGNESIUM 1.6 mg/dL (1.8-2.4); PHOSPHORUS 3.7 mg/dL (2.5-4.9); POTASSIUM 3.4 mmol/L (3.5-5.1); SODIUM SERUM 138 mmol/L (136-145); UREA NITROGEN, BLOOD 13 mg/dL (7-18)
--- NOTE | 2017-08-13 07:40 | NUR ---
RN NOTES PT IS FEELING VERY NAUSEAS AND IS UNABLE TO EAT HER BREAKFAST AT THIS TIME. WILL HOLD THE LISPRO INSULIN SCHEDULED FOR THE AM.
[2017-08-13 08:00] VITALS: BP 99/42
[2017-08-13] MEDS: LACTOBACILLUS RHAMNOSUS GG 1 EACH CAP.SPRINK PO SCH ×2 (08:49→16:15)
[2017-08-13] MEDS: PANTOPRAZOLE 40 MG TABLET.DR PO SCH (08:49)
[2017-08-13] MEDS: METFORMIN 500 MG TABLET PO SCH ×2 (08:49→16:15)
[2017-08-13] MEDS: CLOPIDOGREL BISULFATE 75 MG TABLET PO SCH (08:49)
[2017-08-13] MEDS: CADEXOMER IODINE 40 GM TUBE TP SCH (08:50)
[2017-08-13] MEDS: DAKINS QUARTER STRENGTH (0.125%) 480 ML BOTTLE TOP SCH (08:50)
[2017-08-13] MEDS: ZINC SULFATE 220 MG CAPSULE PO SCH (08:50)
[2017-08-13] MEDS: glipiZIDE 10 MG TABLET PO SCH (08:50)
[2017-08-13] MEDS: ASCORBIC ACID 500 MG TABLET PO SCH (08:50)
[2017-08-13] MEDS: MEMANTINE HCL 5 MG TABLET PO SCH ×2 (08:50→16:15)
[2017-08-13] MEDS: BENAZEPRIL HCL 20 MG TABLET PO SCH (08:51)
[2017-08-13] MEDS: ONDANSETRON HCL/PF 4 MG/2 ML VIAL IV PRN ×2 (10:02→16:15)
[2017-08-13] MEDS: POTASSIUM CHLORIDE 20 MEQ TAB.PRT.SR PO SCH ×2 (10:11→12:07)
[2017-08-13] MEDS: Magnesium 1GM/D5W 100ML PREMIX 100 ML IV SCH ×2 (10:11→12:06)
[2017-08-13 12:00] VITALS: BP 133/65
[2017-08-13] MEDS: IBUPROFEN 400 MG TABLET PO PRN ×2 (12:59→21:54)
[2017-08-13] MEDS: PIPERACILLIN /TAZOBACTAM 2.25 G in IV NS 0.9% 50 ML IV SCH ×2 (12:59→17:36)
[2017-08-13 16:00] VITALS: BP 115/64
[2017-08-13] MEDS: ATORVASTATIN 40 MG TABLET PO SCH (17:36)
--- NOTE | 2017-08-13 18:39 | NUR ---
RN NOTES PT IS SITTING UP IN BED, AWAKE AND ALERT. PT ON RA, RESPIRATIONS ARE EVEN AND UNLABORED. IV RFA INTACT AND PATENT. ALL MEDS WERE GIVEN ORDERED AND PT NEEDS MET. NAUSEA AND PAIN HAVE IMPROVED AFTER MEDICATIONS GIVEN PRN. SAFETY MEASURES ARE IN PLACE, CALL LIGHT IS IN REACH. WILL ENDORSE TO COLOR DRUM WORKER RN FOR CONTINUITY OF CARE.
--- NOTE | 2017-08-13 19:35 | NUR ---
RN OPENING NOTES RECEIVED REPORT FROM FIDEL SHANKAR. FOUND Pt AWAKE, RESTING IN BED. NO S/S OF ACUTE DISTRESS OR SOB NOTED. Pt IS A/OX4, KINYARWANDA SPEAKING ONLY. IV ACCESS ON RFA #22G @TKO. CATHY FOOT WRAPPED FROM POST OP DEBRIDEMENT AND WOUND CLOSURE ON 08/12. SAFETY MEASURES IN PLACE. BED LOW, LOCKED, HOB ELEVATED, SIDE RAILS UP, CALL LIGHT AND BEDSIDE TABLE WITHIN REACH. WILL CONTINUE TO MONITOR Pt THROUGHOUT THE NIGHT FOR SAFETY.
[2017-08-13 20:00] VITALS: BP 135/62
[2017-08-13] MEDS: INSULIN GLARGINE, 100 UNIT/ML CARTRIDGE SQ SCH (22:00)
--- NOTE | 2017-08-13 22:00 | NUR ---
RN NOTES HS ACCUCHECK BG 118. HELD LANTUS 15UN. WILL CONTINUE TO MONITOR Pt's BG.
[2017-08-14] MEDS: PIPERACILLIN /TAZOBACTAM 2.25 G in IV NS 0.9% 50 ML IV SCH ×5 (00:45→23:05)
[2017-08-14] MEDS: ONDANSETRON HCL/PF 4 MG/2 ML VIAL IV PRN (00:52)
--- NOTE | 2017-08-14 06:30 | NUR ---
RN NOTES AC ACCUCHECK BG 93. HELD HUMALOG/NOVALOG 5UN. Pt HAS NOT BEEN EATING WELL AND HAS BEEN HAVING EPISODES OF NAUSEA AND VOMITING LAST NIGHT.
--- NOTE | 2017-08-14 06:35 | NUR ---
RN CLOSING NOTES NO SIGNIFICANT CHANGES IN Pt's CONDITION. Pt REMAINS STABLE AT THIS TIME. NO S/S OF ACUTE DISTRESS OR SOB NOTED DURING THE NIGHT. Pt's NAUSEA & PAIN HAS IMPROVED SINCE LAST NIGHT SINCE RECEIVING ZOFRAN. ALL NEEDS MET AND ATTENDED TO. SAFETY MEASURES IN PLACE. WILL ENDORSE TO DAYSHIFT RN FOR Pt's EASTON.
[2017-08-14] MEDS: BLOOD SUGAR DIAGNOSTIC 1 EACH STRIP VI SCH ×4 (06:42→21:42)
[2017-08-14] MEDS: INSULIN LISPRO/ASPART 100 UNIT/ML CARTRIDGE SQ SCH ×3 (06:49→17:52)
--- NOTE | 2017-08-14 07:10 | NUR ---
RN NOTES PATIENT ASLEEP BUT EASILY AWAKEN, BREATHING EVEN AND UNLABORED, NO SOB NOTED, KEPT PATIENT COMFORTABLE, NEEDS ANTICIPATED, CALL LIGHT WITHIN REACH, WILL CONTINUE TO MONITOR.
[2017-08-14 07:43] LABS: CALCIUM, SERUM 8.7 mg/dL (8.5-10.1); CARBON DIOXIDE 25 mmol/L (21-32); CHLORIDE 105 mmol/L (98-107); CREATININE 1.2 mg/dL (0.6-1.3); GLUCOSE 94 mg/dL (74-106); POTASSIUM 3.8 mmol/L (3.5-5.1); SODIUM SERUM 140 mmol/L (136-145); UREA NITROGEN, BLOOD 11 mg/dL (7-18)
--- NOTE | 2017-08-14 08:30 | NUR ---
RN NOTES PATIENT SEEN BY DR. WHITNEY, AND WOUND DRESSING HAS BEEN CHANGED.
[2017-08-14 08:37] VITALS: BP 120/74
[2017-08-14] MEDS: CLOPIDOGREL BISULFATE 75 MG TABLET PO SCH (09:16)
[2017-08-14] MEDS: METFORMIN 500 MG TABLET PO SCH ×2 (09:17→16:42)
[2017-08-14] MEDS: MEMANTINE HCL 5 MG TABLET PO SCH ×2 (09:17→16:40)
[2017-08-14] MEDS: LACTOBACILLUS RHAMNOSUS GG 1 EACH CAP.SPRINK PO SCH ×2 (09:17→16:40)
[2017-08-14] MEDS: ASCORBIC ACID 500 MG TABLET PO SCH (09:17)
[2017-08-14] MEDS: PANTOPRAZOLE 40 MG TABLET.DR PO SCH (09:17)
[2017-08-14] MEDS: ZINC SULFATE 220 MG CAPSULE PO SCH (09:17)
[2017-08-14] MEDS: glipiZIDE 10 MG TABLET PO SCH (09:17)
[2017-08-14] MEDS: BENAZEPRIL HCL 20 MG TABLET PO SCH (09:18)
[2017-08-14] MEDS: DAKINS QUARTER STRENGTH (0.125%) 480 ML BOTTLE TOP SCH (09:23)
[2017-08-14] MEDS: CADEXOMER IODINE 40 GM TUBE TP SCH (09:23)
--- NOTE | 2017-08-14 12:16 | NUR ---
RN NOTES BS 91, INSULIN LISPRO 5 UNIT HELD.
[2017-08-14] MEDS ORDERED: RXVAN XX (13:57)
[2017-08-14] MEDS: VANCOMYCIN 0.75 GM in IV NS 0.9% 250 ML IV SCH (14:13)
--- NOTE | 2017-08-14 15:00 | NUR ---
RN Notes Patient claimed her cellphone was lost, checked belongings list, and its not stated patient brought a cellphone when admitted. Nursing crusher supervisor aware, and stated facility is not responsible because the item is not listed in the belongings list. Patient made aware.
[2017-08-14 16:11] VITALS: BP 131/85
[2017-08-14] MEDS: ATORVASTATIN 40 MG TABLET PO SCH (17:54)
--- NOTE | 2017-08-14 18:53 | NUR ---
RN NOTES Patient appears to be anxious from leaving the hospital, c architect arrived to transport the patient but patient's heart rate is 116, paged Bartolome Leblanc for clearance. Daniel CHEMICAL LABORATORY TECHNICIAN (ID) came and examined the patient, Per Daniel, patient needs a PICC line placement for termite technician IV antibiotic. EMT placed on will call. Antoine made aware. Received a call back from Mimi SANON and relayed the situation, per CHEMICAL LABORATORY TECHNICIAN hold the discharge for now.
--- NOTE | 2017-08-14 19:00 | NUR ---
RN Notes Patient reported she had 3 loose BM. Informed patient will need to collect stool. Needs attended and met, informed daughter patient's discharge held. Will endorse to night time nanny for janice.
--- NOTE | 2017-08-14 19:30 | NUR ---
RECEIVED PATIENT IN BED AWAKE, OA X 3, ABLE TO MAKE NEEDS KNOWN. NO ACUTE DISTRESS NOTED. DENIES ANY PAIN AT THIS TIME. IV SITE PATENT, INTACT; FLUSHED. SAFETY REMINDERS GIVEN. ON LOW BED WITH BILATERAL UPPER SIDE RAILS UP. CALL [place] WITHIN EASY REACH. WILL CONTINUE TO MONITOR.
[2017-08-14 19:31] VITALS: BP 123/60
[2017-08-14 21:00] VITALS: BP 123/60
[2017-08-14] MEDS: INSULIN GLARGINE, 100 UNIT/ML CARTRIDGE SQ SCH (21:43)
--- NOTE | 2017-08-14 21:43 | NUR ---
BS 85. JAIDA HELD. PATIENT MADE AWARE.
[2017-08-15] MEDS: VANCOMYCIN 0.75 GM in IV NS 0.9% 250 ML IV SCH ×2 (01:19→14:14)
[2017-08-15 06:02] LABS: CALCIUM, SERUM 8.5 mg/dL (8.5-10.1); CARBON DIOXIDE 26 mmol/L (21-32); CHLORIDE 104 mmol/L (98-107); CREATININE 1.1 mg/dL (0.6-1.3); GLUCOSE 146 mg/dL (74-106); POTASSIUM 3.8 mmol/L (3.5-5.1); SODIUM SERUM 138 mmol/L (136-145); UREA NITROGEN, BLOOD 9 mg/dL (7-18)
--- NOTE | 2017-08-15 06:10 | NUR ---
PATIENT ASLEEP, EASILY AROUSABLE. RESPIRATIONS EVEN. NO SIGNS OF PAIN NOTED. DUE MEDS GIVEN WITH NO ASE NOTED. NEEDS ATTENDED. SAFETY PRECAUTIONS AND COMFORT MEASURES IN PLACE. WILL GIVE REPORT TO DAY SHIFT FOR CONTINUITY OF CARE.
[2017-08-15] MEDS: BLOOD SUGAR DIAGNOSTIC 1 EACH STRIP VI SCH ×2 (06:30→12:15)
[2017-08-15] MEDS: PIPERACILLIN /TAZOBACTAM 2.25 G in IV NS 0.9% 50 ML IV SCH ×2 (06:30→11:32)
[2017-08-15] MEDS: INSULIN LISPRO/ASPART 100 UNIT/ML CARTRIDGE SQ SCH ×2 (07:41→12:00)
[2017-08-15 08:00] VITALS: BP 118/63
[2017-08-15] MEDS: MEMANTINE HCL 5 MG TABLET PO SCH (08:20)
[2017-08-15] MEDS: ZINC SULFATE 220 MG CAPSULE PO SCH (08:20)
[2017-08-15] MEDS: ASCORBIC ACID 500 MG TABLET PO SCH (08:20)
[2017-08-15] MEDS: PANTOPRAZOLE 40 MG TABLET.DR PO SCH (08:20)
[2017-08-15] MEDS: glipiZIDE 10 MG TABLET PO SCH (08:20)
[2017-08-15] MEDS: LACTOBACILLUS RHAMNOSUS GG 1 EACH CAP.SPRINK PO SCH (08:20)
[2017-08-15] MEDS: METFORMIN 500 MG TABLET PO SCH (08:20)
[2017-08-15] MEDS: CLOPIDOGREL BISULFATE 75 MG TABLET PO SCH (08:20)
[2017-08-15] MEDS: BENAZEPRIL HCL 20 MG TABLET PO SCH (08:22)
[2017-08-15] MEDS: DAKINS QUARTER STRENGTH (0.125%) 480 ML BOTTLE TOP SCH (09:11)
[2017-08-15] MEDS: CADEXOMER IODINE 40 GM TUBE TP SCH (09:15)
--- NOTE | 2017-08-15 12:30 | NUR ---
RN NOTES BS NOTED AT 68 INSULIN HELD, PUBLIC AID ELIGIBILITY ASSISTANT MADE AWARE
--- NOTE | 2017-08-15 15:30 | NUR ---
RN NOTES PATIENT WITH DISCHARGE ORDERS, PT NOTED ANXIOUS ABOUT GOING TO SNF STATES "I DONT WANT TO GO THERE BUT I KNOW I NEED ANTIBIOTICS" PATIENT REFUSING TO HAVE PICTURES OF SKIN TAKEN AT THIS TIME NURSING EDUCATION REINFORCED.ALL DISCHARGE INSTRUCTIONS REVIEWED WITH PT AND GRAND DAUGHTER WITH NOTED VERBAL UNDERSTANDING, REPORT GIVEN TO SNF RN FOR CONTINUITY OF CARE, ALL BELONGINGS ON BELONGINGS LIST ACCOUNTED FOR, IV TO RIGHT 3RD FINGER PATENT AND INTACT NO REDNESS OR INFILTRATION NOTED WILL AWAIT TRANSPORTATION
[2017-08-15 16:00] VITALS: BP 152/82
--- NOTE | 2017-08-15 16:15 | NUR ---
RN NOTES TRANSPORTATION IN FACILITY PT STATES" I DONT WANT TO GO, I WANT TO GO HOME" NOTED WITH ANXIETY EXPLAINED RISKS OF BENEFITS OF CONTINUING TREATMENT ORDERED BY MD, INFORMED INFECTIOUS DISEASE AND CREDIT NEGOTIATOR OF MRSA OF WOUND CX POSITIVE TO CONTINUE 8WKS OF ANTIBIOTICS ALSO EXPLAINED TO GRAND DAUGHTER VIA TELEPHONE, PT ABLE TO UNDERSTAND AND AGREEABLE, REPORT GIVEN TO SNF AND CM, REPORT GIVEN TO EMT FOR CONTINUITY OF CARE
== END 2017-08-15 16:00 | DRG 623 ==
LOC: WOUND2 10:04
PROVIDERS: ADMIT Podiatrist Foot & Ankle Surgery; ATTEND Nurse Practitioner Acute Care
PROC: 0JQR0ZZ Repair Left Foot Subcutaneous Tissue and Fascia, Open Approach (ICD-10-PCS; 2017-08-12)
PROC: 0QBR0ZX Excision of Left Toe Phalanx, Open Approach, Diagnostic (ICD-10-PCS; 2017-08-12)
PROC: 0Y9N0ZZ Drainage of Left Foot, Open Approach (ICD-10-PCS; 2017-08-12)
PROC: 0JBQ0ZZ Excision of Right Foot Subcutaneous Tissue and Fascia, Open Approach (ICD-10-PCS; principal; 2017-08-12 07:00)
DX: E11.69 Type 2 diabetes mellitus with other specified complication (principal); M86.672 Other chronic osteomyelitis, left ankle and foot; E11.42 Type 2 diabetes mellitus with diabetic polyneuropathy; E11.621 Type 2 diabetes mellitus with foot ulcer; M87.9 Osteonecrosis, unspecified; E11.65 Type 2 diabetes mellitus with hyperglycemia; L97.519 Non-pressure chronic ulcer of other part of right foot with unspecified severity; L97.529 Non-pressure chronic ulcer of other part of left foot with unspecified severity; E78.5 Hyperlipidemia, unspecified; F03.90 Unspecified dementia, unspecified severity, without behavioral disturbance, psychotic disturbance, mood disturbance, and anxiety; I10 Essential (primary) hypertension; E66.9 Obesity, unspecified; Z68.28 Body mass index [BMI] 28.0-28.9, adult; H52.4 Presbyopia
CPT/HCPCS: 36415; 71045-TC; 73630-TC; 80048-TC; 80053-TC; 80202-TC; 82962-TC; 83735-TC; 84100-TC; 85025-TC; 85652-TC; 87070-TC; 87081-TC; 88305-TC; 88311-TC; 88312-TC; A4216; A6209; A6402; J1100; J1815; J2405; J2543; J2704; J3370; J3475; J3490; J7050; J7060; Z7610

== ENCOUNTER 2017-08-23 14:15 | Outpatient (CLI) | payer OTHER, MEDICARE | END 2017-08-23 23:59 | LOC: WOU 14:15 | PROVIDERS: ATTEND Podiatrist Foot & Ankle Surgery | DX: Z48.817 Encounter for surgical aftercare following surgery on the skin and subcutaneous tissue (principal); T81.31XA Disruption of external operation (surgical) wound, not elsewhere classified, initial encounter; E11.65 Type 2 diabetes mellitus with hyperglycemia; E11.69 Type 2 diabetes mellitus with other specified complication; M86.8X7 Other osteomyelitis, ankle and foot; E11.42 Type 2 diabetes mellitus with diabetic polyneuropathy; Z79.84 Long term (current) use of oral hypoglycemic drugs | CPT/HCPCS: A6402; G0463 ==

== ENCOUNTER 2017-08-30 12:54 | Outpatient (CLI) | payer OTHER | END 2017-08-30 23:59 | LOC: WOU 12:54 | PROVIDERS: ATTEND Podiatrist Foot & Ankle Surgery | DX: T81.31XD Disruption of external operation (surgical) wound, not elsewhere classified, subsequent encounter (principal); L97.521 Non-pressure chronic ulcer of other part of left foot limited to breakdown of skin; E11.65 Type 2 diabetes mellitus with hyperglycemia; E11.42 Type 2 diabetes mellitus with diabetic polyneuropathy; Z79.84 Long term (current) use of oral hypoglycemic drugs | CPT/HCPCS: A6253; A6402; G0463 ==

== ENCOUNTER 2017-09-06 12:33 | Outpatient (CLI) | payer MEDICARE, OTHER | END 2017-09-06 23:59 | disposition home health service (06) | LOC: WOU 12:33 | PROVIDERS: ATTEND Podiatrist Foot & Ankle Surgery | DX: T81.31XA Disruption of external operation (surgical) wound, not elsewhere classified, initial encounter (principal); E11.621 Type 2 diabetes mellitus with foot ulcer; L97.528 Non-pressure chronic ulcer of other part of left foot with other specified severity; L97.518 Non-pressure chronic ulcer of other part of right foot with other specified severity; E11.42 Type 2 diabetes mellitus with diabetic polyneuropathy; E11.69 Type 2 diabetes mellitus with other specified complication; M86.9 Osteomyelitis, unspecified; Z79.84 Long term (current) use of oral hypoglycemic drugs | CPT/HCPCS: 11042; A6402 ==

== ENCOUNTER 2017-09-13 13:00 | Outpatient (CLI) | payer MEDICARE, OTHER | END 2017-09-13 23:59 | LOC: WOU 13:00 | PROVIDERS: ATTEND Podiatrist Foot & Ankle Surgery | DX: T81.31XA Disruption of external operation (surgical) wound, not elsewhere classified, initial encounter (principal); E11.42 Type 2 diabetes mellitus with diabetic polyneuropathy; Z79.84 Long term (current) use of oral hypoglycemic drugs; E11.621 Type 2 diabetes mellitus with foot ulcer; L97.522 Non-pressure chronic ulcer of other part of left foot with fat layer exposed; L97.512 Non-pressure chronic ulcer of other part of right foot with fat layer exposed | CPT/HCPCS: 11042; A6402 ==

== ENCOUNTER 2017-09-18 13:30 | Outpatient (CLI) | payer MEDICARE, OTHER | END 2017-09-18 23:59 | disposition home or self-care (01) | LOC: WOU 13:30 | PROVIDERS: ATTEND Podiatrist Foot & Ankle Surgery | DX: T81.31XA Disruption of external operation (surgical) wound, not elsewhere classified, initial encounter (principal); E11.51 Type 2 diabetes mellitus with diabetic peripheral angiopathy without gangrene; E11.69 Type 2 diabetes mellitus with other specified complication; M86.8X7 Other osteomyelitis, ankle and foot; E11.621 Type 2 diabetes mellitus with foot ulcer; L97.122 Non-pressure chronic ulcer of left thigh with fat layer exposed; L97.112 Non-pressure chronic ulcer of right thigh with fat layer exposed | CPT/HCPCS: 11042; A6402; Z7610 ==

== ENCOUNTER 2017-09-25 13:28 | Outpatient (CLI) | payer MEDICARE, OTHER ==
[~2017-09-25 13:28] MED LIST changes: +BENA20TA2 PO; -BENA20TA9 PO; -METF-442 PO; +METF10004 PO
== END 2017-09-25 23:59 | disposition home or self-care (01) ==
LOC: WOU 13:28
PROVIDERS: ATTEND Podiatrist Foot & Ankle Surgery
PROC: 02PYX3Z Removal of Infusion Device from Great Vessel, External Approach (ICD-10-PCS; principal; 2017-09-25)
DX: E11.621 Type 2 diabetes mellitus with foot ulcer (principal); L97.522 Non-pressure chronic ulcer of other part of left foot with fat layer exposed; L97.512 Non-pressure chronic ulcer of other part of right foot with fat layer exposed; Z89.412 Acquired absence of left great toe; Z89.411 Acquired absence of right great toe; E11.42 Type 2 diabetes mellitus with diabetic polyneuropathy; E11.69 Type 2 diabetes mellitus with other specified complication; M86.8X7 Other osteomyelitis, ankle and foot; Z79.84 Long term (current) use of oral hypoglycemic drugs
CPT/HCPCS: 11042; A6402; G0463

== ENCOUNTER 2017-11-05 13:29 | Outpatient (CLI) | payer MEDICARE, OTHER ==
[~2017-11-05 13:29] MED LIST changes: -BENA20TA2 PO; +BENA20TA9 PO
== END 2017-11-05 23:59 | disposition home or self-care (01) ==
LOC: WOU 13:29
PROVIDERS: ATTEND Podiatrist Foot & Ankle Surgery
DX: E11.621 Type 2 diabetes mellitus with foot ulcer (principal); L97.525 Non-pressure chronic ulcer of other part of left foot with muscle involvement without evidence of necrosis; L97.515 Non-pressure chronic ulcer of other part of right foot with muscle involvement without evidence of necrosis; E11.42 Type 2 diabetes mellitus with diabetic polyneuropathy; E11.69 Type 2 diabetes mellitus with other specified complication; M86.9 Osteomyelitis, unspecified; Z79.84 Long term (current) use of oral hypoglycemic drugs; I73.9 Peripheral vascular disease, unspecified
CPT/HCPCS: 11043; A6402; Z7610

== ENCOUNTER 2017-12-13 11:26 | Outpatient (CLI) | payer MEDICARE, OTHER | END 2017-12-13 23:59 | disposition home or self-care (01) | LOC: WOU 11:26 | PROVIDERS: ATTEND Podiatrist Foot & Ankle Surgery | DX: E11.621 Type 2 diabetes mellitus with foot ulcer (principal); L97.523 Non-pressure chronic ulcer of other part of left foot with necrosis of muscle; L97.518 Non-pressure chronic ulcer of other part of right foot with other specified severity; E11.51 Type 2 diabetes mellitus with diabetic peripheral angiopathy without gangrene; E11.65 Type 2 diabetes mellitus with hyperglycemia; Z79.84 Long term (current) use of oral hypoglycemic drugs; Z79.899 Other long term (current) drug therapy | CPT/HCPCS: 11042; 11043; A6402; Z7610 ==

== ENCOUNTER 2017-12-20 11:39 | Outpatient (CLI) | payer MEDICARE, OTHER ==
[~2017-12-20 11:39] MED LIST changes: +METF-442 PO; -METF10004 PO
== END 2017-12-20 23:59 | disposition home or self-care (01) ==
LOC: WOU 11:39
PROVIDERS: ATTEND Podiatrist Foot & Ankle Surgery
DX: E11.621 Type 2 diabetes mellitus with foot ulcer (principal); L97.525 Non-pressure chronic ulcer of other part of left foot with muscle involvement without evidence of necrosis; L97.512 Non-pressure chronic ulcer of other part of right foot with fat layer exposed; T81.31XD Disruption of external operation (surgical) wound, not elsewhere classified, subsequent encounter; E11.52 Type 2 diabetes mellitus with diabetic peripheral angiopathy with gangrene; E11.69 Type 2 diabetes mellitus with other specified complication; M86.69 Other chronic osteomyelitis, multiple sites; G40.89 Other seizures; E11.65 Type 2 diabetes mellitus with hyperglycemia; Z79.84 Long term (current) use of oral hypoglycemic drugs; Z79.899 Other long term (current) drug therapy
CPT/HCPCS: 11042; 11043; A6402; Z7610

== ENCOUNTER 2018-01-10 13:06 | Outpatient (CLI) | payer MEDICARE, OTHER | END 2018-01-10 23:59 | disposition home or self-care (01) | LOC: WOU 13:06 | PROVIDERS: ATTEND Podiatrist Foot & Ankle Surgery | DX: T81.89XA Other complications of procedures, not elsewhere classified, initial encounter (principal); E11.621 Type 2 diabetes mellitus with foot ulcer; L97.523 Non-pressure chronic ulcer of other part of left foot with necrosis of muscle; L97.512 Non-pressure chronic ulcer of other part of right foot with fat layer exposed; E11.42 Type 2 diabetes mellitus with diabetic polyneuropathy; E11.65 Type 2 diabetes mellitus with hyperglycemia; Z79.84 Long term (current) use of oral hypoglycemic drugs | CPT/HCPCS: 11043; A6402; Z7610 ==

== ENCOUNTER 2018-03-21 12:05 | Outpatient (CLI) | payer MEDICARE, OTHER | END 2018-03-21 23:59 | disposition home or self-care (01) | LOC: WOU 12:05 | PROVIDERS: ATTEND Podiatrist Foot & Ankle Surgery | DX: E11.621 Type 2 diabetes mellitus with foot ulcer (principal); L97.522 Non-pressure chronic ulcer of other part of left foot with fat layer exposed; L97.512 Non-pressure chronic ulcer of other part of right foot with fat layer exposed; E11.42 Type 2 diabetes mellitus with diabetic polyneuropathy; M20.12 Hallux valgus (acquired), left foot; M20.11 Hallux valgus (acquired), right foot; Z79.84 Long term (current) use of oral hypoglycemic drugs; Z79.899 Other long term (current) drug therapy; B35.1 Tinea unguium | CPT/HCPCS: 11042; A6402; Z7610 ==

== ENCOUNTER 2018-04-02 15:00 | Outpatient (CLI) | payer MEDICARE, OTHER | END 2018-04-02 23:59 | disposition home or self-care (01) | LOC: WOU 15:00 | PROVIDERS: ATTEND Podiatrist Foot & Ankle Surgery | DX: E11.621 Type 2 diabetes mellitus with foot ulcer (principal); L97.522 Non-pressure chronic ulcer of other part of left foot with fat layer exposed; L97.512 Non-pressure chronic ulcer of other part of right foot with fat layer exposed; E11.42 Type 2 diabetes mellitus with diabetic polyneuropathy; R60.0 Localized edema; T81.49XA Infection following a procedure, other surgical site, initial encounter; L03.032 Cellulitis of left toe; Z79.84 Long term (current) use of oral hypoglycemic drugs | CPT/HCPCS: 11042; 87070-TC; 87186-TC ==

== ENCOUNTER 2018-04-11 12:00 | Outpatient (CLI) | payer MEDICARE, OTHER | END 2018-04-11 23:59 | disposition home or self-care (01) | LOC: WOU 12:00 | PROVIDERS: ATTEND Podiatrist Foot & Ankle Surgery | DX: T81.49XA Infection following a procedure, other surgical site, initial encounter (principal); L03.032 Cellulitis of left toe; E11.65 Type 2 diabetes mellitus with hyperglycemia; Z79.84 Long term (current) use of oral hypoglycemic drugs; E11.621 Type 2 diabetes mellitus with foot ulcer; L97.522 Non-pressure chronic ulcer of other part of left foot with fat layer exposed; L97.512 Non-pressure chronic ulcer of other part of right foot with fat layer exposed; E11.42 Type 2 diabetes mellitus with diabetic polyneuropathy; E11.51 Type 2 diabetes mellitus with diabetic peripheral angiopathy without gangrene | CPT/HCPCS: 11042; A6402; Z7610 ==

== ENCOUNTER 2018-04-18 12:30 | Outpatient (CLI) | payer MEDICARE, OTHER | END 2018-04-18 23:59 | disposition home or self-care (01) | LOC: WOU 12:30 | PROVIDERS: ATTEND Podiatrist Foot & Ankle Surgery | DX: Z48.817 Encounter for surgical aftercare following surgery on the skin and subcutaneous tissue (principal); E11.621 Type 2 diabetes mellitus with foot ulcer; L97.522 Non-pressure chronic ulcer of other part of left foot with fat layer exposed; L97.512 Non-pressure chronic ulcer of other part of right foot with fat layer exposed; E11.42 Type 2 diabetes mellitus with diabetic polyneuropathy; E11.51 Type 2 diabetes mellitus with diabetic peripheral angiopathy without gangrene; M20.11 Hallux valgus (acquired), right foot; E11.69 Type 2 diabetes mellitus with other specified complication; M86.9 Osteomyelitis, unspecified; Z79.84 Long term (current) use of oral hypoglycemic drugs | CPT/HCPCS: 11042; A6402; Z7610; 82962-TC ==

== ENCOUNTER 2018-05-02 12:20 | Outpatient (CLI) | payer MEDICARE, OTHER | END 2018-05-02 23:59 | disposition home or self-care (01) | LOC: WOU 12:20 | PROVIDERS: ATTEND Podiatrist Foot & Ankle Surgery | DX: E11.621 Type 2 diabetes mellitus with foot ulcer (principal); L97.522 Non-pressure chronic ulcer of other part of left foot with fat layer exposed; L97.512 Non-pressure chronic ulcer of other part of right foot with fat layer exposed; L03.032 Cellulitis of left toe; E11.42 Type 2 diabetes mellitus with diabetic polyneuropathy; E11.65 Type 2 diabetes mellitus with hyperglycemia; Z79.84 Long term (current) use of oral hypoglycemic drugs; Z79.899 Other long term (current) drug therapy | CPT/HCPCS: 11042; A6402 ×2 ==

== ENCOUNTER 2018-05-30 12:50 | Outpatient (CLI) | payer MEDICARE, MEDICAID | END 2018-05-30 23:59 | disposition home or self-care (01) | LOC: WOU 12:50 | PROVIDERS: ATTEND Podiatrist Foot & Ankle Surgery | DX: E11.621 Type 2 diabetes mellitus with foot ulcer (principal); L97.522 Non-pressure chronic ulcer of other part of left foot with fat layer exposed; L97.512 Non-pressure chronic ulcer of other part of right foot with fat layer exposed; B35.1 Tinea unguium; E11.42 Type 2 diabetes mellitus with diabetic polyneuropathy; Z79.84 Long term (current) use of oral hypoglycemic drugs | CPT/HCPCS: 11042; A6402 ==

== ENCOUNTER 2018-06-13 10:00 | Outpatient (CLI) | payer MEDICARE, MEDICAID | END 2018-06-13 23:59 | disposition home or self-care (01) | LOC: WOU 10:00 | PROVIDERS: ATTEND Podiatrist Foot & Ankle Surgery | DX: E11.621 Type 2 diabetes mellitus with foot ulcer (principal); L97.522 Non-pressure chronic ulcer of other part of left foot with fat layer exposed; L97.518 Non-pressure chronic ulcer of other part of right foot with other specified severity; E11.65 Type 2 diabetes mellitus with hyperglycemia; E11.42 Type 2 diabetes mellitus with diabetic polyneuropathy; R60.0 Localized edema; Z79.84 Long term (current) use of oral hypoglycemic drugs; Z79.899 Other long term (current) drug therapy | CPT/HCPCS: 11042; A6402 ==

== ENCOUNTER 2018-07-08 10:00 | Outpatient (CLI) | payer MEDICARE, OTHER | END 2018-07-08 23:59 | disposition home or self-care (01) | LOC: WOU 10:00 | PROVIDERS: ATTEND Podiatrist Foot & Ankle Surgery | DX: E11.621 Type 2 diabetes mellitus with foot ulcer (principal); L97.522 Non-pressure chronic ulcer of other part of left foot with fat layer exposed; L97.518 Non-pressure chronic ulcer of other part of right foot with other specified severity; E11.42 Type 2 diabetes mellitus with diabetic polyneuropathy; E11.65 Type 2 diabetes mellitus with hyperglycemia; Z79.84 Long term (current) use of oral hypoglycemic drugs; R60.0 Localized edema | CPT/HCPCS: 11043; A6402 ==

== ENCOUNTER 2018-08-01 11:10 | Outpatient (CLI) | payer MEDICARE, OTHER | END 2018-08-01 23:59 | disposition home or self-care (01) | LOC: WOU 11:10 | PROVIDERS: ATTEND Podiatrist Foot & Ankle Surgery | DX: E11.621 Type 2 diabetes mellitus with foot ulcer (principal); L97.522 Non-pressure chronic ulcer of other part of left foot with fat layer exposed; L97.512 Non-pressure chronic ulcer of other part of right foot with fat layer exposed; E11.42 Type 2 diabetes mellitus with diabetic polyneuropathy; Z79.84 Long term (current) use of oral hypoglycemic drugs; L90.9 Atrophic disorder of skin, unspecified; M20.61 Acquired deformities of toe(s), unspecified, right foot | CPT/HCPCS: 11042; A6402 ==

== ENCOUNTER 2018-09-16 12:00 | Outpatient (CLI) | payer MEDICARE, OTHER | END 2018-09-16 23:59 | disposition home or self-care (01) | LOC: WOU 12:00 | PROVIDERS: ATTEND Podiatrist Foot & Ankle Surgery | DX: E11.621 Type 2 diabetes mellitus with foot ulcer (principal); L97.512 Non-pressure chronic ulcer of other part of right foot with fat layer exposed; E11.52 Type 2 diabetes mellitus with diabetic peripheral angiopathy with gangrene; I96 Gangrene, not elsewhere classified; M86.69 Other chronic osteomyelitis, multiple sites; T81.31XD Disruption of external operation (surgical) wound, not elsewhere classified, subsequent encounter; H61.22 Impacted cerumen, left ear; Z79.84 Long term (current) use of oral hypoglycemic drugs | CPT/HCPCS: 11042; A6402 ==

== ENCOUNTER 2018-10-07 09:45 | Outpatient (CLI) | payer MEDICARE, OTHER | END 2018-10-07 23:59 | disposition home or self-care (01) | LOC: WOU 09:45 | PROVIDERS: ATTEND Podiatrist Foot & Ankle Surgery | DX: E11.621 Type 2 diabetes mellitus with foot ulcer (principal); L97.512 Non-pressure chronic ulcer of other part of right foot with fat layer exposed; E11.42 Type 2 diabetes mellitus with diabetic polyneuropathy; E11.65 Type 2 diabetes mellitus with hyperglycemia; Z79.84 Long term (current) use of oral hypoglycemic drugs; L84 Corns and callosities | CPT/HCPCS: 11042; A6402 ==

== ENCOUNTER 2018-11-21 10:15 | Outpatient (CLI) | payer MEDICARE, OTHER | END 2018-11-21 23:59 | disposition home or self-care (01) | LOC: WOU 10:15 | PROVIDERS: ATTEND Podiatrist Foot & Ankle Surgery | DX: E11.621 Type 2 diabetes mellitus with foot ulcer (principal); L97.512 Non-pressure chronic ulcer of other part of right foot with fat layer exposed; E11.51 Type 2 diabetes mellitus with diabetic peripheral angiopathy without gangrene; L84 Corns and callosities; B35.1 Tinea unguium; Z79.84 Long term (current) use of oral hypoglycemic drugs | CPT/HCPCS: 11042 ==

== ENCOUNTER 2018-12-19 10:30 | Outpatient (CLI) | payer MEDICARE, OTHER | END 2018-12-19 23:59 | disposition home or self-care (01) | LOC: WOU 10:30 | PROVIDERS: ATTEND Podiatrist Foot & Ankle Surgery | DX: E11.621 Type 2 diabetes mellitus with foot ulcer (principal); L97.513 Non-pressure chronic ulcer of other part of right foot with necrosis of muscle; E11.52 Type 2 diabetes mellitus with diabetic peripheral angiopathy with gangrene; G40.89 Other seizures; E11.69 Type 2 diabetes mellitus with other specified complication; M86.69 Other chronic osteomyelitis, multiple sites; T81.31XD Disruption of external operation (surgical) wound, not elsewhere classified, subsequent encounter; I96 Gangrene, not elsewhere classified; E11.40 Type 2 diabetes mellitus with diabetic neuropathy, unspecified; F03.90 Unspecified dementia, unspecified severity, without behavioral disturbance, psychotic disturbance, mood disturbance, and anxiety; Z79.84 Long term (current) use of oral hypoglycemic drugs | CPT/HCPCS: 11043 ==

== ENCOUNTER 2019-03-27 09:15 | Outpatient (CLI) | payer MEDICARE, OTHER | END 2019-03-27 23:59 | disposition home health service (06) | LOC: WOU 09:15 | PROVIDERS: ATTEND Podiatrist Foot & Ankle Surgery | DX: E11.621 Type 2 diabetes mellitus with foot ulcer (principal); L97.522 Non-pressure chronic ulcer of other part of left foot with fat layer exposed; L97.513 Non-pressure chronic ulcer of other part of right foot with necrosis of muscle; E11.52 Type 2 diabetes mellitus with diabetic peripheral angiopathy with gangrene; I96 Gangrene, not elsewhere classified; G40.89 Other seizures; E11.69 Type 2 diabetes mellitus with other specified complication; M86.69 Other chronic osteomyelitis, multiple sites; T81.31XD Disruption of external operation (surgical) wound, not elsewhere classified, subsequent encounter; Z79.84 Long term (current) use of oral hypoglycemic drugs | CPT/HCPCS: 11042; 11043; 87070-TC; 87075-TC ==

== ENCOUNTER 2019-04-03 09:00 | Outpatient (CLI) | payer MEDICARE, OTHER | END 2019-04-03 23:59 | disposition home or self-care (01) | LOC: WOU 09:00 | PROVIDERS: ATTEND Podiatrist Foot & Ankle Surgery | DX: E11.621 Type 2 diabetes mellitus with foot ulcer (principal); L97.515 Non-pressure chronic ulcer of other part of right foot with muscle involvement without evidence of necrosis; L02.611 Cutaneous abscess of right foot; M20.12 Hallux valgus (acquired), left foot; M20.11 Hallux valgus (acquired), right foot; T81.31XD Disruption of external operation (surgical) wound, not elsewhere classified, subsequent encounter; L03.031 Cellulitis of right toe; G40.89 Other seizures; E11.52 Type 2 diabetes mellitus with diabetic peripheral angiopathy with gangrene; I96 Gangrene, not elsewhere classified | CPT/HCPCS: 10060; 11042 ==

== ENCOUNTER 2019-05-01 09:45 | Outpatient (CLI) | payer MEDICARE, OTHER | END 2019-05-01 23:59 | disposition home or self-care (01) | LOC: WOU 09:45 | PROVIDERS: ATTEND Podiatrist Foot & Ankle Surgery | DX: E11.621 Type 2 diabetes mellitus with foot ulcer (principal); L97.512 Non-pressure chronic ulcer of other part of right foot with fat layer exposed; E11.69 Type 2 diabetes mellitus with other specified complication; M86.69 Other chronic osteomyelitis, multiple sites; E11.40 Type 2 diabetes mellitus with diabetic neuropathy, unspecified; Z79.84 Long term (current) use of oral hypoglycemic drugs | CPT/HCPCS: 11042 ==

== ENCOUNTER 2019-05-12 10:00 | Outpatient (CLI) | payer MEDICARE, OTHER | END 2019-05-12 23:59 | disposition home or self-care (01) | LOC: WOU 10:00 | PROVIDERS: ATTEND Podiatrist Foot & Ankle Surgery | DX: E11.51 Type 2 diabetes mellitus with diabetic peripheral angiopathy without gangrene (principal); M20.12 Hallux valgus (acquired), left foot; M20.11 Hallux valgus (acquired), right foot; G40.89 Other seizures | CPT/HCPCS: G0463 ==

== ENCOUNTER 2019-05-29 09:57 | Outpatient (CLI) | payer MEDICARE, OTHER | END 2019-05-29 23:59 | disposition home health service (06) | LOC: WOU 09:57 | PROVIDERS: ATTEND Podiatrist Foot & Ankle Surgery | DX: L02.611 Cutaneous abscess of right foot (principal); L03.031 Cellulitis of right toe; Z89.429 Acquired absence of other toe(s), unspecified side; M20.12 Hallux valgus (acquired), left foot; M20.11 Hallux valgus (acquired), right foot; M20.40 Other hammer toe(s) (acquired), unspecified foot; E11.40 Type 2 diabetes mellitus with diabetic neuropathy, unspecified; E11.51 Type 2 diabetes mellitus with diabetic peripheral angiopathy without gangrene; Z79.84 Long term (current) use of oral hypoglycemic drugs | CPT/HCPCS: 10060; 87070-TC ==

== ENCOUNTER 2019-06-04 11:32 | Outpatient (CLI) | payer MEDICARE, OTHER ==
[2019-06-04 13:04] LABS: BASOPHILS % (AUTO) 0.5 % (0.0-2.0); EOSINOPHILS % (AUTO) 1.3 % (0.0-6.0); HEMATOCRIT 35 % (33-45); HEMOGLOBIN 11.6 g/dL (11.5-14.8); LYMPHOCYTES # (AUTO) 1.2 /CMM (0.8-4.8); LYMPHOCYTES % (AUTO) 19.9 % (20.0-44.0); MEAN CORPUSCULAR HGB CONC 33 g/dl (31.0-36.0); MEAN CORPUSCULAR VOLUME 89 fL (82-100); MONOCYTES # (AUTO) 0.3 /CMM (0.1-1.30); MONOCYTES % (AUTO) 5.6 % (2.0-12.0); NEUTROPHILS # (AUTO) 4.4 /CMM (1.8-8.9); NEUTROPHILS % (AUTO) 72.7 % (43.0-81.0); PLATELET COUNT (AUTO) 229 /CMM (150-450); RED BLOOD CELL COUNT(AUTO) 3.98 MIL/uL (4.0-5.2); WHITE BLOOD COUNT (AUTO) 6.1 K/uL (4.3-11.0)
[2019-06-04 13:11] LABS: ALBUMIN 3.6 g/dL (3.4-5.0)
[2019-06-04 14:21] LABS: C-REACTIVE PROTEIN 2.7 mg/dL (0.0-0.9)
== END 2019-06-04 23:59 | disposition home or self-care (01) ==
LOC: LAB 11:32
PROVIDERS: ATTEND Podiatrist Foot & Ankle Surgery
DX: M19.071 Primary osteoarthritis, right ankle and foot (principal); M20.11 Hallux valgus (acquired), right foot; M77.31 Calcaneal spur, right foot; L97.519 Non-pressure chronic ulcer of other part of right foot with unspecified severity; L02.611 Cutaneous abscess of right foot; M85.871 Other specified disorders of bone density and structure, right ankle and foot
CPT/HCPCS: 36415; 73630-TC; 82040-TC; 85025-TC; 85652-TC; 86140-TC

== ENCOUNTER 2019-06-05 09:50 | Outpatient (CLI) | payer MEDICARE, OTHER | END 2019-06-05 23:59 | disposition home health service (06) | LOC: WOU 09:50 | PROVIDERS: ATTEND Podiatrist Foot & Ankle Surgery | DX: E11.621 Type 2 diabetes mellitus with foot ulcer (principal); L97.512 Non-pressure chronic ulcer of other part of right foot with fat layer exposed; L97.516 Non-pressure chronic ulcer of other part of right foot with bone involvement without evidence of necrosis; M79.671 Pain in right foot; T81.31XD Disruption of external operation (surgical) wound, not elsewhere classified, subsequent encounter; G40.89 Other seizures; E11.52 Type 2 diabetes mellitus with diabetic peripheral angiopathy with gangrene; M20.11 Hallux valgus (acquired), right foot; E11.40 Type 2 diabetes mellitus with diabetic neuropathy, unspecified; Z79.4 Long term (current) use of insulin | CPT/HCPCS: 10060; 11042; 87070-TC ==

== ENCOUNTER 2019-06-09 10:49 | Outpatient (CLI) | payer MEDICARE, OTHER | END 2019-06-09 23:59 | disposition home or self-care (01) | LOC: MRI 10:49 | PROVIDERS: ATTEND Podiatrist Foot & Ankle Surgery | DX: M19.071 Primary osteoarthritis, right ankle and foot (principal); M20.11 Hallux valgus (acquired), right foot; R60.0 Localized edema | CPT/HCPCS: 73718-TC ==

== ENCOUNTER 2019-06-19 09:35 | Outpatient (CLI) | payer MEDICARE, OTHER | END 2019-06-19 23:59 | disposition home health service (06) | LOC: WOU 09:35 | PROVIDERS: ATTEND Podiatrist Foot & Ankle Surgery | DX: L02.612 Cutaneous abscess of left foot (principal); E11.52 Type 2 diabetes mellitus with diabetic peripheral angiopathy with gangrene; E11.621 Type 2 diabetes mellitus with foot ulcer; L97.522 Non-pressure chronic ulcer of other part of left foot with fat layer exposed; M79.671 Pain in right foot; T81.31XD Disruption of external operation (surgical) wound, not elsewhere classified, subsequent encounter; Z79.84 Long term (current) use of oral hypoglycemic drugs | CPT/HCPCS: 11042 ==

== ENCOUNTER 2019-06-30 10:23 | Outpatient (CLI) | payer MEDICARE, OTHER | END 2019-06-30 23:59 | disposition home health service (06) | LOC: WOU 10:23 | PROVIDERS: ATTEND Podiatrist Foot & Ankle Surgery | DX: E11.621 Type 2 diabetes mellitus with foot ulcer (principal); L97.512 Non-pressure chronic ulcer of other part of right foot with fat layer exposed; L02.612 Cutaneous abscess of left foot; E11.51 Type 2 diabetes mellitus with diabetic peripheral angiopathy without gangrene; Z79.84 Long term (current) use of oral hypoglycemic drugs; L84 Corns and callosities; B35.1 Tinea unguium; M79.672 Pain in left foot; M79.671 Pain in right foot; Z98.62 Peripheral vascular angioplasty status | CPT/HCPCS: 11042 ==

== ENCOUNTER 2019-07-07 10:30 | Outpatient (CLI) | payer MEDICARE, OTHER | END 2019-07-07 23:59 | disposition home health service (06) | LOC: WOU 10:30 | PROVIDERS: ATTEND Podiatrist Foot & Ankle Surgery | DX: E11.621 Type 2 diabetes mellitus with foot ulcer (principal); L97.522 Non-pressure chronic ulcer of other part of left foot with fat layer exposed; Z79.84 Long term (current) use of oral hypoglycemic drugs; M79.671 Pain in right foot | CPT/HCPCS: 11042 ==

== ENCOUNTER 2019-08-05 14:00 | Outpatient (CLI) | payer MEDICARE, OTHER | END 2019-08-05 23:59 | disposition home health service (06) | LOC: WOU 14:00 | PROVIDERS: ATTEND Podiatrist Foot & Ankle Surgery | DX: E11.621 Type 2 diabetes mellitus with foot ulcer (principal); L97.522 Non-pressure chronic ulcer of other part of left foot with fat layer exposed; L97.512 Non-pressure chronic ulcer of other part of right foot with fat layer exposed; M79.671 Pain in right foot; Z79.84 Long term (current) use of oral hypoglycemic drugs | CPT/HCPCS: 11042; 11043; A6407 ==

== ENCOUNTER 2019-08-12 14:20 | Outpatient (CLI) | payer MEDICARE, OTHER | END 2019-08-12 23:59 | disposition home health service (06) | LOC: WOU 14:20 | PROVIDERS: ATTEND Podiatrist Foot & Ankle Surgery | DX: E11.621 Type 2 diabetes mellitus with foot ulcer (principal); L97.526 Non-pressure chronic ulcer of other part of left foot with bone involvement without evidence of necrosis; L97.512 Non-pressure chronic ulcer of other part of right foot with fat layer exposed; L03.032 Cellulitis of left toe; Z79.84 Long term (current) use of oral hypoglycemic drugs; M79.671 Pain in right foot | CPT/HCPCS: 11042; 11044; 87070; 87075; A6407 ==

== ENCOUNTER 2019-09-01 09:15 | Outpatient (CLI) | payer MEDICARE, OTHER | END 2019-09-01 23:59 | disposition home health service (06) | LOC: WOU 09:15 | PROVIDERS: ATTEND Podiatrist Foot & Ankle Surgery | DX: E11.621 Type 2 diabetes mellitus with foot ulcer (principal); L97.526 Non-pressure chronic ulcer of other part of left foot with bone involvement without evidence of necrosis; L97.512 Non-pressure chronic ulcer of other part of right foot with fat layer exposed; Z79.84 Long term (current) use of oral hypoglycemic drugs; M79.671 Pain in right foot | CPT/HCPCS: 11042; 11044 ==

== ENCOUNTER 2019-09-22 08:40 | Outpatient (CLI) | payer MEDICARE, OTHER | END 2019-09-22 23:59 | disposition home health service (06) | LOC: WOU 08:40 | PROVIDERS: ATTEND Podiatrist Foot & Ankle Surgery | DX: E11.621 Type 2 diabetes mellitus with foot ulcer (principal); L97.525 Non-pressure chronic ulcer of other part of left foot with muscle involvement without evidence of necrosis; L97.512 Non-pressure chronic ulcer of other part of right foot with fat layer exposed; B35.1 Tinea unguium; M79.671 Pain in right foot; Z79.84 Long term (current) use of oral hypoglycemic drugs | CPT/HCPCS: 11042; A6407 ==

== ENCOUNTER 2019-10-09 08:30 | Outpatient (CLI) | payer MEDICARE, OTHER | END 2019-10-09 23:59 | disposition home health service (06) | LOC: WOU 08:30 | PROVIDERS: ATTEND Podiatrist Foot & Ankle Surgery | DX: E11.621 Type 2 diabetes mellitus with foot ulcer (principal); L97.524 Non-pressure chronic ulcer of other part of left foot with necrosis of bone; L97.512 Non-pressure chronic ulcer of other part of right foot with fat layer exposed; E11.69 Type 2 diabetes mellitus with other specified complication; E11.51 Type 2 diabetes mellitus with diabetic peripheral angiopathy without gangrene; M86.672 Other chronic osteomyelitis, left ankle and foot; Z79.84 Long term (current) use of oral hypoglycemic drugs | CPT/HCPCS: 11042; 11044; 87070; 87075; A6407 ==

== ENCOUNTER 2019-11-06 08:25 | Outpatient (CLI) | payer MEDICARE, OTHER ==
[2019-11-06] MEDS ORDERED: CADEXOMER IODINE UD 5 GM TUBE ONE (09:26)
== END 2019-11-06 23:59 | disposition home health service (06) ==
LOC: WOU 08:25
PROVIDERS: ATTEND Podiatrist Foot & Ankle Surgery
DX: E11.621 Type 2 diabetes mellitus with foot ulcer (principal); L97.512 Non-pressure chronic ulcer of other part of right foot with fat layer exposed; L97.526 Non-pressure chronic ulcer of other part of left foot with bone involvement without evidence of necrosis; L03.031 Cellulitis of right toe; E11.51 Type 2 diabetes mellitus with diabetic peripheral angiopathy without gangrene; E11.69 Type 2 diabetes mellitus with other specified complication; M86.672 Other chronic osteomyelitis, left ankle and foot; Z79.84 Long term (current) use of oral hypoglycemic drugs; M79.671 Pain in right foot
CPT/HCPCS: 11042; 87070-TC; 87075-TC

== ENCOUNTER 2019-11-12 13:45 | Outpatient (CLI) | payer MEDICARE, OTHER | END 2019-11-12 23:59 | disposition home or self-care (01) | LOC: RAD 13:45 | PROVIDERS: ATTEND Podiatrist Foot & Ankle Surgery | DX: M19.072 Primary osteoarthritis, left ankle and foot (principal); M19.071 Primary osteoarthritis, right ankle and foot; M20.11 Hallux valgus (acquired), right foot; M21.611 Bunion of right foot; M77.32 Calcaneal spur, left foot; M79.89 Other specified soft tissue disorders | CPT/HCPCS: 73630-TC ==

== ENCOUNTER 2019-11-13 09:50 | Outpatient (CLI) | payer MEDICARE, OTHER ==
[2019-11-13] MEDS ORDERED: CADEXOMER IODINE UD 5 GM TUBE ONE (10:25)
== END 2019-11-13 23:59 | disposition home health service (06) ==
LOC: WOU 09:50
PROVIDERS: ATTEND Podiatrist Foot & Ankle Surgery
DX: E11.621 Type 2 diabetes mellitus with foot ulcer (principal); L97.522 Non-pressure chronic ulcer of other part of left foot with fat layer exposed; L97.512 Non-pressure chronic ulcer of other part of right foot with fat layer exposed; L03.031 Cellulitis of right toe; E11.51 Type 2 diabetes mellitus with diabetic peripheral angiopathy without gangrene; E11.69 Type 2 diabetes mellitus with other specified complication; M86.672 Other chronic osteomyelitis, left ankle and foot; Z79.84 Long term (current) use of oral hypoglycemic drugs
CPT/HCPCS: 11042

== ENCOUNTER 2019-12-16 14:00 | Outpatient (CLI) | payer MEDICARE, OTHER ==
[2019-12-16] MEDS ORDERED: CADEXOMER IODINE UD 5 GM TUBE ONE (15:07)
== END 2019-12-16 23:59 | disposition home health service (06) ==
LOC: WOU 14:00
PROVIDERS: ATTEND Podiatrist Foot & Ankle Surgery
DX: E11.621 Type 2 diabetes mellitus with foot ulcer (principal); L97.522 Non-pressure chronic ulcer of other part of left foot with fat layer exposed; L97.516 Non-pressure chronic ulcer of other part of right foot with bone involvement without evidence of necrosis; Z79.84 Long term (current) use of oral hypoglycemic drugs; L03.116 Cellulitis of left lower limb; E11.69 Type 2 diabetes mellitus with other specified complication; M86.672 Other chronic osteomyelitis, left ankle and foot; L02.611 Cutaneous abscess of right foot; M79.671 Pain in right foot
CPT/HCPCS: 11042; 11044; 87070-TC

== ENCOUNTER 2020-01-19 08:45 | Outpatient (CLI) | payer MEDICARE, OTHER | END 2020-01-19 23:59 | disposition home health service (06) | LOC: WOU 08:45 | PROVIDERS: ATTEND Podiatrist Foot & Ankle Surgery | DX: E11.621 Type 2 diabetes mellitus with foot ulcer (principal); L97.522 Non-pressure chronic ulcer of other part of left foot with fat layer exposed; L97.512 Non-pressure chronic ulcer of other part of right foot with fat layer exposed; E11.51 Type 2 diabetes mellitus with diabetic peripheral angiopathy without gangrene; E11.69 Type 2 diabetes mellitus with other specified complication; M86.672 Other chronic osteomyelitis, left ankle and foot; Z79.84 Long term (current) use of oral hypoglycemic drugs; L03.031 Cellulitis of right toe; B35.3 Tinea pedis; B35.1 Tinea unguium | CPT/HCPCS: 11042 ==

== ENCOUNTER 2020-04-29 08:35 | Outpatient (CLI) | payer MEDICARE, OTHER | END 2020-04-29 23:59 | disposition home or self-care (01) | LOC: WOU 08:35 | PROVIDERS: ATTEND Podiatrist Foot & Ankle Surgery | DX: Z09 Encounter for follow-up examination after completed treatment for conditions other than malignant neoplasm (principal); Z86.31 Personal history of diabetic foot ulcer; E11.51 Type 2 diabetes mellitus with diabetic peripheral angiopathy without gangrene; Z79.84 Long term (current) use of oral hypoglycemic drugs; L84 Corns and callosities; B35.1 Tinea unguium; M79.675 Pain in left toe(s); M79.674 Pain in right toe(s) | CPT/HCPCS: G0463 ==

== ENCOUNTER 2020-09-06 09:21 | Outpatient (CLI) | payer MEDICARE, OTHER ==
[2020-09-06] MEDS ORDERED: LIDOCAINE SOLN 4% 50 ML BOTTLE ONE (09:50)
[2020-09-06 11:39] LABS: BASOPHILS % (AUTO) 0.5 % (0.0-2.0); EOSINOPHILS % (AUTO) 1.1 % (0.0-6.0); HEMATOCRIT 37 % (33-45); HEMOGLOBIN 12.4 g/dL (11.5-14.8); LYMPHOCYTES # (AUTO) 1.4 /CMM (0.8-4.8); LYMPHOCYTES % (AUTO) 26.8 % (20.0-44.0); MEAN CORPUSCULAR HGB CONC 33 g/dl (31.0-36.0); MEAN CORPUSCULAR VOLUME 91 fL (82-100); MONOCYTES # (AUTO) 0.4 /CMM (0.1-1.30); MONOCYTES % (AUTO) 7.2 % (2.0-12.0); NEUTROPHILS # (AUTO) 3.3 /CMM (1.8-8.9); NEUTROPHILS % (AUTO) 64.4 % (43.0-81.0); PLATELET COUNT (AUTO) 238 /CMM (150-450); RED BLOOD CELL COUNT(AUTO) 4.09 MIL/uL (4.0-5.2); WHITE BLOOD COUNT (AUTO) 5.1 K/uL (4.3-11.0)
[2020-09-06 12:04] LABS: PREALBUMIN 27.9 MG/DL (18.0-35.7)
[2020-09-06 12:13] LABS: C-REACTIVE PROTEIN 1.7 mg/dL (0.0-0.9)
== END 2020-09-06 23:59 | disposition home health service (06) ==
LOC: WOU 09:21
PROVIDERS: ATTEND Podiatrist Foot & Ankle Surgery
DX: E11.621 Type 2 diabetes mellitus with foot ulcer (principal); L97.522 Non-pressure chronic ulcer of other part of left foot with fat layer exposed; L03.032 Cellulitis of left toe; E11.51 Type 2 diabetes mellitus with diabetic peripheral angiopathy without gangrene; S90.122A Contusion of left lesser toe(s) without damage to nail, initial encounter; W22.09XA Striking against other stationary object, initial encounter; Y92.89 Other specified places as the place of occurrence of the external cause; B35.1 Tinea unguium; L84 Corns and callosities; M79.675 Pain in left toe(s); M79.674 Pain in right toe(s); Z79.84 Long term (current) use of oral hypoglycemic drugs
CPT/HCPCS: 11042; 36415; 82040-TC; 84134-TC; 85025-TC; 85652-TC; 86140-TC; 87070-TC; 87075-TC

== ENCOUNTER → 2020-09-20 | Outpatient (CLI) | payer MEDICARE, OTHER ==
[~2020-09-20] MED LIST changes: +LIDOCAINE 2% JEL 5 ML TUBE ONE
== END | disposition home health service (06) ==
LOC: WOU 11:15
PROVIDERS: ATTEND Podiatrist Foot & Ankle Surgery
DX: E11.621 Type 2 diabetes mellitus with foot ulcer (principal); L97.522 Non-pressure chronic ulcer of other part of left foot with fat layer exposed; E11.51 Type 2 diabetes mellitus with diabetic peripheral angiopathy without gangrene; Z79.84 Long term (current) use of oral hypoglycemic drugs; L03.032 Cellulitis of left toe; L84 Corns and callosities; B35.1 Tinea unguium; M79.675 Pain in left toe(s); M79.674 Pain in right toe(s)
CPT/HCPCS: 11042

== ENCOUNTER 2020-10-28 11:10 | Outpatient (CLI) | payer MEDICARE, OTHER ==
[~2020-10-28 11:10] MED LIST changes: -LIDOCAINE 2% JEL 5 ML TUBE ONE
[2020-10-28] MEDS ORDERED: MUPIROCIN 2% CREAM 15 GM TUBE TP ONE (11:52)
== END 2020-10-28 23:59 | disposition home health service (06) ==
LOC: WOU 11:10
PROVIDERS: ATTEND Podiatrist Foot & Ankle Surgery
DX: E11.621 Type 2 diabetes mellitus with foot ulcer (principal); L97.522 Non-pressure chronic ulcer of other part of left foot with fat layer exposed; E11.51 Type 2 diabetes mellitus with diabetic peripheral angiopathy without gangrene; L03.032 Cellulitis of left toe; B35.1 Tinea unguium; L84 Corns and callosities; M79.671 Pain in right foot; M79.675 Pain in left toe(s); M79.674 Pain in right toe(s); Z79.84 Long term (current) use of oral hypoglycemic drugs
CPT/HCPCS: 11042

== ENCOUNTER 2020-11-16 14:50 | Outpatient (CLI) | payer MEDICARE, OTHER ==
[2020-11-16] MEDS ORDERED: MUPIROCIN 2% CREAM 15 GM TUBE TP ONE (15:16)
== END 2020-11-16 23:59 | disposition home health service (06) ==
LOC: WOU 14:50
PROVIDERS: ATTEND Podiatrist Foot & Ankle Surgery
DX: E11.621 Type 2 diabetes mellitus with foot ulcer (principal); L97.522 Non-pressure chronic ulcer of other part of left foot with fat layer exposed; E11.51 Type 2 diabetes mellitus with diabetic peripheral angiopathy without gangrene; I70.245 Atherosclerosis of native arteries of left leg with ulceration of other part of foot; B35.1 Tinea unguium; L03.032 Cellulitis of left toe; Z83.3 Family history of diabetes mellitus; E11.40 Type 2 diabetes mellitus with diabetic neuropathy, unspecified; L84 Corns and callosities; Z86.31 Personal history of diabetic foot ulcer; Z79.84 Long term (current) use of oral hypoglycemic drugs; Z79.899 Other long term (current) drug therapy
CPT/HCPCS: 11042; 87070-TC; 87075-TC

== ENCOUNTER 2020-11-22 09:38 | Outpatient (CLI) | payer MEDICARE, OTHER | END 2020-11-22 23:59 | disposition home health service (06) | LOC: WOU 09:38 | PROVIDERS: ATTEND Podiatrist Foot & Ankle Surgery | DX: E11.621 Type 2 diabetes mellitus with foot ulcer (principal); L97.522 Non-pressure chronic ulcer of other part of left foot with fat layer exposed; L84 Corns and callosities; M20.42 Other hammer toe(s) (acquired), left foot; E11.65 Type 2 diabetes mellitus with hyperglycemia; M35.1 Other overlap syndromes; E11.51 Type 2 diabetes mellitus with diabetic peripheral angiopathy without gangrene | CPT/HCPCS: 11042; 11056 ==

== ENCOUNTER 2020-12-21 14:20 | Outpatient (CLI) | payer MEDICARE, OTHER | END 2020-12-21 23:59 | disposition home health service (06) | LOC: WOU 14:20 | PROVIDERS: ATTEND Podiatrist Foot & Ankle Surgery | DX: E11.621 Type 2 diabetes mellitus with foot ulcer (principal); L97.522 Non-pressure chronic ulcer of other part of left foot with fat layer exposed; E11.51 Type 2 diabetes mellitus with diabetic peripheral angiopathy without gangrene; L84 Corns and callosities; B35.1 Tinea unguium; M79.675 Pain in left toe(s); M79.674 Pain in right toe(s); Z79.84 Long term (current) use of oral hypoglycemic drugs | CPT/HCPCS: 11042 ==

== ENCOUNTER → 2021-01-11 | Outpatient (CLI) | payer MEDICARE, OTHER | END | disposition home health service (06) | LOC: WOU 14:05 | PROVIDERS: ATTEND Podiatrist Foot & Ankle Surgery | DX: E11.621 Type 2 diabetes mellitus with foot ulcer (principal); L97.522 Non-pressure chronic ulcer of other part of left foot with fat layer exposed; E11.51 Type 2 diabetes mellitus with diabetic peripheral angiopathy without gangrene; Z79.84 Long term (current) use of oral hypoglycemic drugs; L03.032 Cellulitis of left toe; L84 Corns and callosities; B35.1 Tinea unguium; M79.675 Pain in left toe(s); M79.674 Pain in right toe(s) | CPT/HCPCS: 11042 ==

== ENCOUNTER 2021-01-20 09:00 | Outpatient (CLI) | payer MEDICARE, OTHER ==
[2021-01-20] MEDS ORDERED: MUPIROCIN 2% CREAM 15 GM TUBE TP ONE (09:33)
== END 2021-01-20 23:59 | disposition home health service (06) ==
LOC: WOU 09:00
PROVIDERS: ATTEND Podiatrist Foot & Ankle Surgery
DX: E11.621 Type 2 diabetes mellitus with foot ulcer (principal); L97.522 Non-pressure chronic ulcer of other part of left foot with fat layer exposed; E11.51 Type 2 diabetes mellitus with diabetic peripheral angiopathy without gangrene; L84 Corns and callosities; B35.1 Tinea unguium; M79.671 Pain in right foot; M79.675 Pain in left toe(s); M79.674 Pain in right toe(s); Z79.84 Long term (current) use of oral hypoglycemic drugs
CPT/HCPCS: 11042; 11057

== ENCOUNTER 2021-02-14 09:00 | Outpatient (CLI) | payer MEDICARE, OTHER ==
[2021-02-14] MEDS ORDERED: LIDOCAINE 2% JEL 5 ML TUBE ONE (09:06)
[2021-02-14] MEDS ORDERED: MUPIROCIN 2% CREAM 15 GM TUBE TP ONE (09:34)
== END 2021-02-14 23:59 | disposition home health service (06) ==
LOC: WOU 09:00
PROVIDERS: ATTEND Podiatrist Foot & Ankle Surgery
DX: E11.621 Type 2 diabetes mellitus with foot ulcer (principal); L97.522 Non-pressure chronic ulcer of other part of left foot with fat layer exposed; L84 Corns and callosities; E11.51 Type 2 diabetes mellitus with diabetic peripheral angiopathy without gangrene; B35.1 Tinea unguium; M79.675 Pain in left toe(s); M79.674 Pain in right toe(s); Z79.84 Long term (current) use of oral hypoglycemic drugs
CPT/HCPCS: 11042

== ENCOUNTER 2021-04-11 11:35 | Outpatient (CLI) | payer MEDICARE, OTHER | END 2021-04-11 23:59 | disposition home health service (06) | LOC: WOU 11:35 | PROVIDERS: ATTEND Podiatrist Foot & Ankle Surgery | DX: E11.621 Type 2 diabetes mellitus with foot ulcer (principal); L97.522 Non-pressure chronic ulcer of other part of left foot with fat layer exposed; E11.51 Type 2 diabetes mellitus with diabetic peripheral angiopathy without gangrene; L03.032 Cellulitis of left toe; L84 Corns and callosities; B35.1 Tinea unguium; M79.675 Pain in left toe(s); M79.674 Pain in right toe(s); Z79.84 Long term (current) use of oral hypoglycemic drugs | CPT/HCPCS: 10140; 87070; 87075; 87077; 87186 ×2; A6197 ==

== ENCOUNTER 2021-04-25 11:30 | Outpatient (CLI) | payer MEDICARE, OTHER | END 2021-04-25 23:59 | disposition home health service (06) | LOC: WOU 11:30 | PROVIDERS: ATTEND Podiatrist Foot & Ankle Surgery | DX: E11.621 Type 2 diabetes mellitus with foot ulcer (principal); L97.522 Non-pressure chronic ulcer of other part of left foot with fat layer exposed; E11.51 Type 2 diabetes mellitus with diabetic peripheral angiopathy without gangrene; L03.032 Cellulitis of left toe; M79.671 Pain in right foot; L84 Corns and callosities; B35.1 Tinea unguium; Z79.84 Long term (current) use of oral hypoglycemic drugs | CPT/HCPCS: 11042 ==

== ENCOUNTER 2021-05-02 11:40 | Outpatient (CLI) | payer MEDICARE, OTHER | END 2021-05-02 23:59 | disposition home health service (06) | LOC: WOU 11:40 | PROVIDERS: ATTEND Podiatrist Foot & Ankle Surgery | DX: E11.621 Type 2 diabetes mellitus with foot ulcer (principal); L97.522 Non-pressure chronic ulcer of other part of left foot with fat layer exposed; E11.51 Type 2 diabetes mellitus with diabetic peripheral angiopathy without gangrene; L84 Corns and callosities; L03.032 Cellulitis of left toe; B35.1 Tinea unguium; M79.675 Pain in left toe(s); M79.671 Pain in right foot; Z79.84 Long term (current) use of oral hypoglycemic drugs | CPT/HCPCS: 11042; 11055 ==

== ENCOUNTER 2021-06-06 11:30 | Outpatient (CLI) | payer MEDICARE, OTHER | END 2021-06-06 23:59 | disposition home health service (06) | LOC: WOU 11:30 | PROVIDERS: ATTEND Podiatrist Foot & Ankle Surgery | DX: E11.621 Type 2 diabetes mellitus with foot ulcer (principal); L97.522 Non-pressure chronic ulcer of other part of left foot with fat layer exposed; E11.51 Type 2 diabetes mellitus with diabetic peripheral angiopathy without gangrene; L03.032 Cellulitis of left toe; M79.671 Pain in right foot; L84 Corns and callosities; B35.1 Tinea unguium; M79.675 Pain in left toe(s); M79.674 Pain in right toe(s); Z79.84 Long term (current) use of oral hypoglycemic drugs | CPT/HCPCS: 11042 ==

== ENCOUNTER 2021-07-04 11:30 | Outpatient (CLI) | payer MEDICARE, OTHER | END 2021-07-04 23:59 | disposition home health service (06) | LOC: WOU 11:30 | PROVIDERS: ATTEND Podiatrist Foot & Ankle Surgery | DX: B35.1 Tinea unguium (principal); E11.51 Type 2 diabetes mellitus with diabetic peripheral angiopathy without gangrene; Z79.84 Long term (current) use of oral hypoglycemic drugs; M79.671 Pain in right foot; M79.675 Pain in left toe(s); M79.674 Pain in right toe(s); L84 Corns and callosities | CPT/HCPCS: G0463 ==

== ENCOUNTER 2021-08-22 10:30 | Outpatient (CLI) | payer MEDICARE, OTHER | END 2021-08-22 23:59 | disposition home health service (06) | LOC: WOU 10:30 | PROVIDERS: ATTEND Podiatrist Foot & Ankle Surgery | DX: E11.621 Type 2 diabetes mellitus with foot ulcer (principal); L97.522 Non-pressure chronic ulcer of other part of left foot with fat layer exposed; E11.51 Type 2 diabetes mellitus with diabetic peripheral angiopathy without gangrene; L84 Corns and callosities; B35.1 Tinea unguium; Z79.84 Long term (current) use of oral hypoglycemic drugs; M79.675 Pain in left toe(s) | CPT/HCPCS: 11042 ==

== ENCOUNTER 2021-09-05 11:50 | Outpatient (CLI) | payer MEDICARE, OTHER ==
[2021-09-05] MEDS ORDERED: LIDOCAINE 2% JEL 5 ML TUBE ONE (11:59)
[2021-09-05] MEDS ORDERED: UREA 10% -AHA 4% CREAM 57 GM TUBE ONE (12:05)
== END 2021-09-05 23:59 | disposition home health service (06) ==
LOC: WOU 11:50
PROVIDERS: ATTEND Podiatrist Foot & Ankle Surgery
DX: E11.51 Type 2 diabetes mellitus with diabetic peripheral angiopathy without gangrene (principal); L84 Corns and callosities; B35.1 Tinea unguium; Z86.31 Personal history of diabetic foot ulcer; Z89.412 Acquired absence of left great toe; Z79.84 Long term (current) use of oral hypoglycemic drugs
CPT/HCPCS: 82962; G0463

== ENCOUNTER 2021-11-21 10:15 | Outpatient (CLI) | payer MEDICARE, OTHER ==
[2021-11-21] MEDS ORDERED: UREA 10% -AHA 4% CREAM 57 GM TUBE ONE (10:46)
== END 2021-11-21 23:59 | disposition home health service (06) ==
LOC: WOU 10:15
PROVIDERS: ATTEND Podiatrist Foot & Ankle Surgery
DX: L60.2 Onychogryphosis (principal); B35.1 Tinea unguium; Z86.31 Personal history of diabetic foot ulcer; E11.51 Type 2 diabetes mellitus with diabetic peripheral angiopathy without gangrene; Z89.412 Acquired absence of left great toe; E11.40 Type 2 diabetes mellitus with diabetic neuropathy, unspecified; Z79.84 Long term (current) use of oral hypoglycemic drugs
CPT/HCPCS: G0463

== ENCOUNTER 2022-01-12 10:30 | Outpatient (CLI) | payer MEDICARE, OTHER ==
[~2022-01-12 10:30] MED LIST changes: +HYDROCORTISONE 1% CREAM 28.35 GM TUBE TP ONE
[2022-01-12] MEDS ORDERED: UREA 10% -AHA 4% CREAM 57 GM TUBE ONE (11:11)
== END 2022-01-12 23:59 | disposition home health service (06) ==
LOC: WOU 10:30
PROVIDERS: ATTEND Podiatrist Foot & Ankle Surgery
DX: L84 Corns and callosities (principal); B35.1 Tinea unguium; L60.2 Onychogryphosis; E11.40 Type 2 diabetes mellitus with diabetic neuropathy, unspecified; Z79.4 Long term (current) use of insulin; Z79.02 Long term (current) use of antithrombotics/antiplatelets; Z89.422 Acquired absence of other left toe(s)
CPT/HCPCS: G0463